=== PATIENT | female | born 1975 | race Two or more races ===

== ENCOUNTER 2017-07-20 07:47 | Emergency (ER) | payer BC ==
[2017-07-20] MEDS ORDERED: Sodium Chloride 0.9% 1,000 ML IV ONE ×2 (07:59→08:54)
[2017-07-20] MEDS ORDERED: Sodium Chloride 0.9% 2.5 ML Syringe FLUSH PRN (07:59)
[2017-07-20] MEDS ORDERED: Ondansetron 4 MG/2 ML SDV IVPUSH ONE ×2 (07:59→09:44)
[2017-07-20] MEDS ORDERED: Sodium Chloride 0.9% 10 ML Syringe FLUSH PRN (07:59)
[2017-07-20] MEDS ORDERED: Meclizine 25 MG Tab PO ONE (08:11)
--- NOTE | 2017-07-20 08:17 | EDM.PDOC ---
ED HPI GENERAL MEDICAL PROBLEM - General Chief Complaint: Neurological Problem Time Seen by Provider: 07/20/17 07:51 Source of Information: Reports: Patient History Limitations: Reports: No Limitations - History of Present Illness INITIAL COMMENTS - FREE TEXT/NARRATIVE: History of present illness: []Patient started having severe dizziness 30 minutes prior to arrival with nausea. She denies any recent illnesses, fevers, chills, trauma, visual changes , numbness or tingling or pain. Review of systems: As per history of present illness and below otherwise all systems reviewed and negative. Past medical history: As per history of present illness and as reviewed below otherwise noncontributory. Surgical history: As per history of present illness and as reviewed below otherwise noncontributory. Social history: No reported history of drug or alcohol abuse. Family history: As per history of present illness and as reviewed below otherwise noncontributory. Physical exam: General: Well developed, well nourished in NAD HEENT: Atraumatic, normocephalic, pupils reactive, negative for conjunctival pallor or scleral icterus, mucous membranes moist, throat clear, neck supple, nontender, trachea midline. Lungs: Clear to auscultation, breath sounds equal bilaterally, chest nontender. Heart: S1S2, regular, negative for clicks, rubs, or JVD. Abdomen: Soft, nondistended, nontender. Negative for masses or hepatosplenomegaly. Negative for costovertebral tenderness. Pelvis: Stable nontender. Genitourinary: Deferred. Rectal: Deferred. Extremities: Atraumatic, negative for cords or calf pain. Neurovascular unremarkable. Neuro: Awake, alert, oriented. Cranial nerves II through XII unremarkable. Cerebellum unremarkable. Motor and sensory unremarkable throughout. Exam nonfocal. Diagnostics: []Labs and test negative Therapeutics: []IV fluids Zofran, Valium and meclizine given Impression: []Benign positional vertigo Plan: []Zofran and meclizine as directed follow-up with PMD return if symptoms worsen or change Definitive disposition and diagnosis as appropriate pending reevaluation and review of above. - Related Data Allergies Allergy/AdvReac Type Severity Reaction Status Date / Time No Known Allergies Allergy Verified 07/20/17 07:54 Home Meds: Home Meds Ondansetron HCl [Zofran] 4 mg PO Q6HR PRN #16 tablet 07/20/17 [Rx] Past Medical History - Infectious Disease History Infectious Disease History: Reports: Chicken Pox - Past Surgical History HEENT Surgical History: Reports: Other (See Below) Other HEENT Surgeries/Procedures: nasal polyps removal Social & Family History - Family History Family Medical History: Noncontributory - Tobacco Use Smoking Status *Q: Never Smoker - Caffeine Use Caffeine Use: Reports: None - Recreational Drug Use Recreational Drug Use: No ED ROS GENERAL - Review of Systems Review Of Systems: See Below (See history of present illness) ED EXAM, NEURO - Physical Exam Exam: See Below (See history of present illness) Course - Vital Signs Last Recorded V/S: Last Vital Signs Temp 97.8 F 07/20/17 07:52 Pulse 68 07/20/17 07:52 Resp 18 07/20/17 07:52 BP 116/77 07/20/17 07:52 Pulse Ox 100 07/20/17 07:52 - Orders/Labs/Meds Orders: Active Orders 24 hr Category Date Time Status Sodium Chloride 0.9% [Saline Flush] Med 07/20/17 07:59 Active 10 ml FLUSH ASDIRECTED PRN Sodium Chloride 0.9% [Saline Flush] Med 07/20/17 07:59 Active 2.5 ml FLUSH ASDIRECTED PRN Saline Lock Insert [OM.PC] Stat Oth 07/20/17 07:59 Ordered Medication Orders Sodium Chloride (Saline Flush) 10 ml FLUSH ASDIRECTED PRN PRN Reason: Keep Vein Open Sodium Chloride (Saline Flush) 2.5 ml FLUSH ASDIRECTED PRN PRN Reason: Keep Vein Open Labs: Laboratory Tests 07/20/17 07/20/17 07/20/17 Range/Units 07:55 07:55 07:55 WBC 11.28 H (4.0-11.0) K/uL RBC 4.37 (4.30-5.90) M/uL Hgb 13.2 (12.0-16.0) g/dL Hct 39.7 (36.0-46.0) % MCV 90.8 (80.0-98.0) fL MCH 30.2 (27.0-32.0) pg MCHC 33.2 (31.0-37.0) g/dL RDW Std Deviation 42.3 (28.0-62.0) fl RDW Coeff of Jose 13 (11.0-15.0) % Plt Count 205 (150-400) K/uL MPV 11.00 (7.40-12.00) fL Add Manual Diff YES Neutrophils % (Manual) 44 L (48.0-80.0) % Band Neutrophils % 1 % Lymphocytes % (Manual) 32 (16.0-40.0) % Monocytes % (Manual) 11 (0.0-15.0) % Eosinophils % (Manual) 11 H (0.0-7.0) % Basophils % (Manual) 1 (0.0-1.5) % Nucleated RBC % 0.0 /100WBC Absolute Seg Neuts 5.0 (1.4-5.7) Band Neutrophils # 0.1 Lymphocytes # (Manual) 3.6 H (0.6-2.4) Monocytes # (Manual) 1.2 H (0.0-0.8) Eosinophils # (Manual) 1.2 H (0.0-0.7) Basophils # (Manual) 0.1 (0.0-0.1) Nucleated RBCs # 0 K/uL Sodium 137 (136-146) mmol/L Potassium 3.7 (3.5-5.1) mmol/L Chloride 108 (98-110) mmol/L Carbon Dioxide 20 L (21-31) mmol/L BUN 24 H (6.0-23.0) mg/dL Creatinine 0.8 (0.6-1.5) mg/dL Est Cr Clr Drug Dosing 79.91 mL/min Estimated GFR (MDRD) > 60.0 ml/min Glucose 131 H (60-110) mg/dL Calcium 9.5 (8.8-10.8) mg/dL Total Bilirubin 0.5 (0.1-1.5) mg/dL AST 19 (5-40) IU/L ALT 11 (8-54) IU/L Alkaline Phosphatase 49 (40-150) Total Protein 7.6 (6.0-8.0) g/dL Albumin 4.3 (3.5-5.0) g/dL Globulin 3.3 (2.0-3.5) g/dL Albumin/Globulin Ratio 1.3 (1.3-2.8) HCG, Qual NEGATIVE (NEG) Meds: Medications Generic Name Dose Route Start Last Admin Trade Name Emilie PRN Reason Stop Dose Admin Sodium Chloride 10 ml 07/20/17 07:59 Saline Flush FLUSH ASDIRECTED PRN Keep Vein Open Sodium Chloride 2.5 ml 07/20/17 07:59 Saline Flush FLUSH ASDIRECTED PRN Keep Vein Open Discontinued Medications Generic Name Dose Route Start Last Admin Trade Name Emilie PRN Reason Stop Dose Admin Diazepam 2.5 mg 07/20/17 08:53 07/20/17 09:00 Valium IVPUSH 07/20/17 08:54 2.5 mg ONETIME ONE Administration Sodium Chloride 1,000 mls @ 999 mls/hr 07/20/17 07:59 07/20/17 08:08 Normal Saline IV 07/20/17 08:59 999 mls/hr .Bolus ONE Administration Sodium Chloride 1,000 mls @ 999 mls/hr 07/20/17 08:54 07/20/17 09:02 Normal Saline IV 07/20/17 09:54 999 mls/hr .Bolus ONE Administration Meclizine HCl 25 mg 07/20/17 08:11 07/20/17 08:32 Antivert PO 07/20/17 08:12 25 mg ONETIME ONE Administration Metoclopramide HCl 10 mg 07/20/17 08:53 Reglan IV 07/20/17 08:54 ONETIME ONE Ondansetron HCl 4 mg 07/20/17 07:59 07/20/17 08:06 Zofran IVPUSH 07/20/17 08:00 4 mg ONETIME ONE Administration Ondansetron HCl 4 mg 07/20/17 09:44 07/20/17 09:49 Zofran IVPUSH 07/20/17 09:45 4 mg ONETIME ONE Administration Departure - Departure Time of Disposition: 10:53 Disposition: Home, Self-Care 01 Condition: Good Clinical Impression: Benign positional vertigo Qualifiers: Laterality: unspecified laterality Qualified Code(s): H81.10 - Benign paroxysmal vertigo, unspecified ear - Discharge Information Prescriptions: Ondansetron HCl [Zofran] 4 mg PO Q6HR PRN #16 tablet PRN Reason: Nausea Instructions: Benign Positional Vertigo Referrals: PCP,None [Primary Care Provider] - Forms: ED Department Discharge Additional Instructions: The following information is given to patients seen in the emergency department who are being discharged to home. This information is to outline your options for follow-up care. We provide all patients seen in our emergency department with a follow-up referral. The need for follow-up, as well as the timing and circumstances, are variable depending upon the specifics of your emergency department visit. If you don't have a primary care physician on staff, we will provide you with a referral. We always advise you to contact your personal physician following an emergency department visit to inform them of the circumstance of the visit and for follow-up with them and/or the need for any referrals to a consulting specialist. The emergency department will also refer you to a specialist when appropriate. This referral assures that you have the opportunity for follow-up care with a specialist. All of these measure are taken in an effort to provide you with optimal care, which includes your follow-up. Under all circumstances we always encourage you to contact your private physician who remains a resource for coordinating your care. When calling for follow-up care, please make the office aware that this follow-up is from your recent emergency room visit. If for any reason you are refused follow-up, please contact the [facility] at and asked to speak to the emergency department charge nurse. Take [id number] meclizine 25 mg chewable tablets every 8 hours as needed for dizziness. Zofran for nausea follow-up with PMD [facility] [address] [place] [id number] - My Orders Last 24 Hours: My Active Orders 07/20/17 07:59 Sodium Chloride 0.9% [Saline Flush] 10 ml FLUSH ASDIRECTED PRN Sodium Chloride 0.9% [Saline Flush] 2.5 ml FLUSH ASDIRECTED PRN Saline Lock Insert [OM.PC] Stat - Assessment/Plan Last 24 Hours: My Active Orders 07/20/17 07:59 Sodium Chloride 0.9% [Saline Flush] 10 ml FLUSH ASDIRECTED PRN Sodium Chloride 0.9% [Saline Flush] 2.5 ml FLUSH ASDIRECTED PRN Saline Lock Insert [OM.PC] Stat
[2017-07-20 08:27] LABS: CHLORIDE,CL 108 mmol/L (98-110); SODIUM,NA 137 mmol/L (136-146)
[2017-07-20] MEDS ORDERED: Metoclopramide 10 MG/2 ML SDV IV ONE (08:53)
== END 2017-07-20 10:54 | disposition home or self-care (01) ==
LOC: MW.ED 07:47
DX: H81.10 Benign paroxysmal vertigo, unspecified ear (principal)
CPT/HCPCS: 36415; 80053; 84703; 85025; 96361; 96374; 96375; 96376; 99283; A9270; J2405; J3360; J7040

== ENCOUNTER 2017-12-02 00:28 | Emergency (ER) | payer BC ==
[2017-12-02] MEDS ORDERED: EPINEPHrine 1 MG/ML SDV IM ONE (00:50)
[2017-12-02] MEDS ORDERED: methylPREDNISolone Sodium Succinate 125 MG/2 ML SDV IM ONE (00:50)
--- NOTE | 2017-12-02 00:52 | EDM.PDOC ---
ED HPI GENERAL MEDICAL PROBLEM - General Chief Complaint: Skin Complaint Stated Complaint: RASH Time Seen by Provider: 12/02/17 00:46 - History of Present Illness INITIAL COMMENTS - FREE TEXT/NARRATIVE: HISTORY AND PHYSICAL: History of present illness: Patient's 42-year-old female presents with a concern of allergic reaction patient has had rash with itching and some mild facial swelling is an over last 4-5 days she thinks this may be related to either a new shampoo or conditioner she has been using Benadryl with no significant improvement status slightly worse tonight is been no trouble breathing no tongue swelling no dysphagia or dysphonia. Review of systems: As per history of present illness and below otherwise all systems reviewed and negative. Past medical history: As per history of present illness and as reviewed below otherwise noncontributory. Surgical history: As per history of present illness and as reviewed below otherwise noncontributory. Social history: No reported history of drug or alcohol abuse. Family history: As per history of present illness and as reviewed below otherwise noncontributory. Physical exam: HEENT: Atraumatic, normocephalic, pupils reactive, negative for conjunctival pallor or scleral icterus, mucous membranes moist, throat clear, neck supple, nontender, trachea midline. Lungs: Clear to auscultation, breath sounds equal bilaterally, chest nontender. Heart: S1S2, regular, negative for clicks, rubs, or JVD. Abdomen: Soft, nondistended, nontender. Negative for masses or hepatosplenomegaly. Negative for costovertebral tenderness. Pelvis: Stable nontender. Genitourinary: Deferred. Rectal: Deferred. Extremities: Atraumatic, negative for cords or calf pain. Neurovascular unremarkable. Neuro: Awake, alert, oriented. Cranial nerves II through XII unremarkable. Cerebellum unremarkable. Motor and sensory unremarkable throughout. Exam nonfocal. Skin: Patient is noted have a urticarial type rash involving her face head neck extremities and thorax to lesser degree. Diagnostics: None Therapeutics: Epi 0.3 IM Solu-Medrol 125 mg IM Impression: #1 allergic dermatitis Definitive disposition and diagnosis as appropriate pending reevaluation and review of above. - Related Data Allergies Allergy/AdvReac Type Severity Reaction Status Date / Time No Known Allergies Allergy Verified 07/20/17 07:54 Home Meds: Home Meds Ondansetron HCl [Zofran] 4 mg PO Q6HR PRN #16 tablet 07/20/17 [Rx] Past Medical History - Infectious Disease History Infectious Disease History: Reports: Chicken Pox - Past Surgical History HEENT Surgical History: Reports: Other (See Below) Other HEENT Surgeries/Procedures: nasal polyps removal Social & Family History - Family History Family Medical History: Noncontributory - Tobacco Use Smoking Status *Q: Never Smoker - Caffeine Use Caffeine Use: Reports: None - Recreational Drug Use Recreational Drug Use: No ED ROS GENERAL - Review of Systems Review Of Systems: ROS reveals no pertinent complaints other than HPI. ED EXAM, SKIN/RASH Exam: See Below (See dictation) Departure - Departure Time of Disposition: 00:51 Disposition: Home, Self-Care 01 Condition: Good Clinical Impression: Allergic reaction - Discharge Information Referrals: Scott Jenkins MD [Primary Care Provider] - Additional Instructions: The following information is given to patients seen in the emergency department who are being discharged to home. This information is to outline your options for follow-up care. We provide all patients seen in our emergency department with a follow-up referral. The need for follow-up, as well as the timing and circumstances, are variable depending upon the specifics of your emergency department visit. If you don't have a primary care physician on staff, we will provide you with a referral. We always advise you to contact your personal physician following an emergency department visit to inform them of the circumstance of the visit and for follow-up with them and/or the need for any referrals to a consulting specialist. The emergency department will also refer you to a specialist when appropriate. This referral assures that you have the opportunity for followup care with a specialist. All of these measure are taken in an effort to provide you with optimal care, which includes your followup. Under all circumstances we always encourage you to contact your private physician who remains a resource for coordinating your care. When calling for followup care, please make the office aware that this follow-up is from your recent emergency room visit. If for any reason you are refused follow-up, please contact the [facility] emergency department at and asked to speak to the emergency department charge nurse. Medrol as prescribed continue Benadryl and Claritin as directed avoid all possible allergens follow-up primary medical doctor call to schedule routine appointment and return as needed as discussed
== END 2017-12-02 01:57 | disposition home or self-care (01) ==
LOC: MW.ED 00:28
DX: L50.0 Allergic urticaria (principal)
CPT/HCPCS: 96372; 99283; J0171; J2930; 99282

== ENCOUNTER 2020-09-05 14:08 | Observation (INO) | payer OTHER ==
[2020-09-05] MEDS ORDERED: HYDROmorphone 2 MG/ML Syringe IVPUSH ONE ×2 (14:15→14:46)
[2020-09-05] MEDS ORDERED: Ondansetron 4 MG/2 ML SDV IVPUSH ONE ×2 (14:15→15:52)
--- NOTE | 2020-09-05 14:21 | PCM.SN.2 ---
- Free Text/Narrative Note: Heart rate = 49 bpm, junctional rhythm, normal QRS interval, diffuse benign early repolarization, no STEMI. EKG and rhythm strip interpreted by me at 1414
[2020-09-05] MEDS ORDERED: Sodium Chloride 0.9% 1,000 ML IV ONE (14:27)
--- NOTE | 2020-09-05 14:28 | EDM.PDOC ---
ED HPI GENERAL MEDICAL PROBLEM - General Chief Complaint: Lower Extremity Injury/Pain Stated Complaint: EMS Time Seen by Provider: 09/05/20 14:15 Source of Information: Reports: Patient, EMS History Limitations: Reports: No Limitations - History of Present Illness INITIAL COMMENTS - FREE TEXT/NARRATIVE: HISTORY AND PHYSICAL: History of present illness: Patient is a 45-year-old female who presents emergency room today via EMS with concern of right lower leg injury that occurred just prior to travel to the ED. Patient states that she was on her child's hover board when she was trying to step off the hover board. Patient states to have the board slipped out from under her and she fell twisting her right lower extremity. Patient states that she noticed obvious deformity of the lower extremity so called EMS. In route to the facility, EMS did give patient 75 mg of fentanyl for pain. States that she did not hit her head or lose consciousness and has no other symptoms or complaints at this time. Patient states that she is sexually active and not on control so there is a chance that she could be . Patient denies fever, chills, chest pain, shortness of breath, or cough. Denies headache, neck stiff ness, change in vision, syncope, or near syncope. Denies nausea, vomiting, abdominal pain, diarrhea, constipation, or dysuria. Has not noted any blood in urine or stool. Patient has been eating and drinking appropriately. Review of systems: As per history of present illness and below otherwise all systems reviewed and negative. Past medical history: As per history of present illness and as reviewed below otherwise noncontributory. Surgical history: As per history of present illness and as reviewed below otherwise noncontributory. Social history: See social history for further information Family history: As per history of present illness and as reviewed below otherwise noncontributory. Physical exam: General: Patient is alert, oriented, and in no acute distress. Patient sitting on exam table, appears quite uncomfortable. Bradycardic 55-60bmp ranging on exam. Otherwise vitally stable. HEENT: Atraumatic, normocephalic, pupils equal and reactive bilaterally, negative for conjunctival pallor or scleral icterus, mucous membranes moist, TMs normal bilaterally, throat clear, neck supple, nontender, trachea midline. No drooling or trismus noted. No meningeal signs. No hot potato voice noted. Lungs: Clear to auscultation, breath sounds equal bilaterally, chest nontender. Heart: S1S2, regular rate and rhythm without overt murmur Abdomen: Soft, nondistended, nontender. Negative for masses or hepatosplenomegaly. Negative for costovertebral tenderness. Pelvis: Stable nontender. Genitourinary: Deferred. Rectal: Deferred. Skin: Intact, warm, dry. No lesions or rashes noted. Extremities: There is an obvious closed fracture deformity of the RLE. DP/PT pulses intact of the RLE via doppler. Intact sensation to light/deep touch of entire RLE. Unable to assess ROM of the RLE due to obvious fracture deformity. The foot in relation to the knee on the right at the area of obvious fracture is rotated outward. The area of obvious fracture does show skin tenting but no open area noted/no blood noted. Otherwise, atraumatic, negative for cords or calf pain. Neurovascular unremarkable. Neuro: Awake, alert, oriented. Cranial nerves II through XII unremarkable. Cerebellum unremarkable. Motor and sensory unremarkable throughout. Exam nonfocal. Notes: Dr. Hammer directly involved in patient care. Upon initial exam, patient is quite uncomfortable and RLE has obvious fracture deformity with skin tenting/ unstable fracture with the lower part of the extremity rotated outward / not in-line with the upper portion of the extremity. Neurovascularly intact. Long posterior splint with a sugar tong splint was applied by myself and nursing staff to ensure stability of the fracture. Currently at this time, patient is neurovascularly intact confirmed via doppler. Toes are pink, warm, and cap refill < 2 seconds after splint placement. Following therapeutics, she expresses that she still has significant pain, however, she would like to decline more narcotic pain medication at this time as she states it makes her nauseous and unwell. 17:30: I did call and speak to the orthopedic provider on-call, Dr. Jose Yates, and thoroughly discussed patient's case. He recommends that patient be placed in a long posterior/sugar tong splint and discharged to home/ with pain medications and crutches and to have patient follow-up this week in the clinic and get scheduled for surgery later date with Dr. Case, who assumes call/takes over for Dr. Yates starting tomorrow morning. 17:45: Patient made aware of Dr. Yates's recommendations and is concerned about discharge as she feels unable to get around due to pain requesting to discuss further with her . 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 Yates admission for pain control. 19:00: At this time, Dr. Hammer is off shift and Dr. Treviño is now directly involved in patient care. 19:05: I did call and speak to Dr. Yates who would like the hospitalist to admit patient for pain control. 19:15: I did call and speak to Dr. Chilel, hospitalist credit control officer, and thoroughly discussed patients case. Will admit to observation telemetry. Diagnostics: EKG, CBC, CMP, UA, CXR, Trop, Tib/Fib xr extended for joint above and below, serum hcg Therapeutics: NS, Zofran, Dilaudid, Toradol, long posterior/sugar tong splint Impression: Tibia/fibula shaft fracture, closed, displaced Plan: Admit to observation to Dr. Chilel on telemetry with consult to Dr. Yates Definitive disposition and diagnosis as appropriate pending reevaluation and review of above. right leg Pain Score (Numeric/FACES): 10 - Related Data Allergies Allergy/AdvReac Type Severity Reaction Status Date / Time benzoyl peroxide Allergy Rash Verified 09/05/20 22:29 Home Meds: Home Meds . [No Known Home Meds] 09/05/20 [History] Past Medical History HEENT History: Reports: Sinusitis Cardiovascular History: Reports: Hypertension - Infectious Disease History Infectious Disease History: Reports: Chicken Pox - Past Surgical History HEENT Surgical History: Reports: Other (See Below) Other HEENT Surgeries/Procedures: nasal polyps removal Social & Family History - Family History Family Medical History: No Pertinent Family History - Caffeine Use Caffeine Use: Reports: None ED ROS GENERAL - Review of Systems Review Of Systems: Comprehensive ROS is negative, except as noted in HPI. ED EXAM, GENERAL - Physical Exam Exam: See Below (see dictation) ED GENERAL MEDICAL PROCEDURES - Splinting Right Lower Extremity Splint Site: Right lower extremity Pre-procedure NV status: Normal Post-procedure NV status: Normal Splint Type: Custom Splint Material: Plaster Splint Design: Sugar Tong, Posterior Applied & Form Fitted By: Provider, Nurse Provider Post-Splint Application NV Check: NV Status Normal, Good Position Complications: No Course - Vital Signs Last Recorded V/S: Last Vital Signs Temp 96.6 F L 09/06/20 12:00 Pulse 63 09/06/20 12:00 Resp 18 09/06/20 12:00 BP 126/76 09/06/20 12:00 Pulse Ox 100 09/06/20 12:00 - Orders/Labs/Meds Orders: Medication Orders Acetaminophen (Tylenol) 650 mg PO Q4H PRN PRN Reason: Pain Albuterol/Ipratropium (Duoneb 3.0-0.5 Mg/3 Ml) 3 ml NEB Q4HRRT PRN PRN Reason: Shortness Of Breath/wheezing Enoxaparin Sodium (Lovenox) 40 mg SUBCUT Q24H FORMERLY [facility], 1928–1983 Last Admin: 09/06/20 09:56 Dose: 40 mg Documented by: BREANNA Lactated Ringer's (Ringers, Lactated) 1,000 mls @ 125 mls/hr IV ASDIRECTED FORMERLY [facility], 1928–1983 Last Admin: 09/06/20 13:41 Dose: 125 mls/hr Documented by: Infusion: 09/06/20 13:01 Dose: 125 mls/hr Documented by: Admin: 09/06/20 05:01 Dose: 125 mls/hr Documented by: Infusion: 09/06/20 04:51 Dose: 125 mls/hr Documented by: Admin: 09/05/20 20:51 Dose: 125 mls/hr Documented by: NATALIO Ceftriaxone Sodium/Dextrose 1 (gm/ Premix) 50 mls @ 100 mls/hr IV Q24H FOR[facility], [facility]1983 Last Admin: 09/06/20 08:37 Dose: 100 mls/hr Documented by: BREANNA Morphine Sulfate (Morphine) 3 mg IVPUSH Q3H PRN PRN Reason: Pain Last Admin: 09/06/20 08:45 Dose: 3 mg Documented by: BREANNA Ondansetron HCl (Zofran) 4 mg IVPUSH Q4H PRN PRN Reason: Nausea/Vomiting Last Admin: 09/06/20 09:56 Dose: 4 mg Documented by: Admin: 09/06/20 05:36 Dose: 4 mg Documented by: Admin: 09/05/20 21:11 Dose: 4 mg Documented by: NATALIO Oxycodone HCl (Oxycodone) 5 mg PO Q4H PRN PRN Reason: Pain Last Admin: 09/06/20 14:14 Dose: 5 mg Documented by: KATERINAIMACarrie Admin: 09/06/20 09:56 Dose: 5 mg Documented by: ALBIMAR Scopolamine (Transderm-Scop) 1.5 mg TRDERM Q72H PRN PRN Reason: Vomiting Last Admin: 09/06/20 08:36 Dose: 1.5 mg Documented by: KATERINAIMACarrie Labs: Laboratory Tests 09/05/20 09/05/20 09/05/20 Range/Units 15:40 15:40 15:40 WBC 19.35 H (4.0-11.0) K/uL RBC 4.52 (4.30-5.90) M/uL Hgb 13.5 (12.0-16.0) g/dL Hct 42.3 (36.0-46.0) % MCV 93.6 (80.0-98.0) fL MCH 29.9 (27.0-32.0) pg MCHC 31.9 (31.0-37.0) g/dL RDW Std Deviation 45.0 (28.0-62.0) fl RDW Coeff of Jose 13 (11.0-15.0) % Plt Count 179 (150-400) K/uL MPV 10.80 (7.40-12.00) fL Neut % (Auto) 85.9 H (48.0-80.0) % Lymph % (Auto) 8.1 L (16.0-40.0) % Union % (Auto) 5.2 (0.0-15.0) % Eos % (Auto) 0.5 (0.0-7.0) % Baso % (Auto) 0.3 (0.0-1.5) % Neut # (Auto) 16.6 H (1.4-5.7) K/uL Lymph # (Auto) 1.6 (0.6-2.4) K/uL Union # (Auto) 1.0 H (0.0-0.8) K/uL Eos # (Auto) 0.1 (0.0-0.7) K/uL Baso # (Auto) 0.1 (0.0-0.1) K/uL Nucleated RBC % 0.0 /100WBC Nucleated RBCs # 0 K/uL Sodium 143 (136-145) mmol/L Potassium 3.6 (3.5-5.1) mmol/L Chloride 108 H (98-107) mmol/L Carbon Dioxide 21.3 (21.0-32.0) mmol/L BUN 16 (7.0-18.0) mg/dL Creatinine 1.0 (0.6-1.0) mg/dL Est Cr Clr Drug Dosing 61.99 mL/min Estimated GFR (MDRD) > 60.0 ml/min Glucose 114 H (74-106) mg/dL Calcium 8.9 (8.5-10.1) mg/dL Total Bilirubin 0.2 (0.2-1.0) mg/dL AST 18 (15-37) IU/L ALT 22 (14-63) IU/L Alkaline Phosphatase 52 (46-116) U/L Troponin I < 0.050 (0.000-0.056) ng/mL Total Protein 7.3 (6.4-8.2) g/dL Albumin 3.9 (3.4-5.0) g/dL Globulin 3.4 (2.6-4.0) g/dL Albumin/Globulin Ratio 1.1 (0.9-1.6) HCG, Qual NEGATIVE (NEG) Influenza Type A RNA (NEGATIVE) Influenza Type B RNA (NEGATIVE) SARS-CoV-2 RNA (MAGY) (NEGATIVE) 09/05/20 Range/Units 16:15 WBC (4.0-11.0) K/uL RBC (4.30-5.90) M/uL Hgb (12.0-16.0) g/dL Hct (36.0-46.0) % MCV (80.0-98.0) fL MCH (27.0-32.0) pg MCHC (31.0-37.0) g/dL RDW Std Deviation (28.0-62.0) fl RDW Coeff of Jose (11.0-15.0) % Plt Count (150-400) K/uL MPV (7.40-12.00) fL Neut % (Auto) (48.0-80.0) % Lymph % (Auto) (16.0-40.0) % Union % (Auto) (0.0-15.0) % Eos % (Auto) (0.0-7.0) % Baso % (Auto) (0.0-1.5) % Neut # (Auto) (1.4-5.7) K/uL Lymph # (Auto) (0.6-2.4) K/uL Union # (Auto) (0.0-0.8) K/uL Eos # (Auto) (0.0-0.7) K/uL Baso # (Auto) (0.0-0.1) K/uL Nucleated RBC % /100WBC Nucleated RBCs # K/uL Sodium (136-145) mmol/L Potassium (3.5-5.1) mmol/L Chloride (98-107) mmol/L Carbon Dioxide (21.0-32.0) mmol/L BUN (7.0-18.0) mg/dL Creatinine (0.6-1.0) mg/dL Est Cr Clr Drug Dosing mL/min Estimated GFR (MDRD) ml/min Glucose (74-106) mg/dL Calcium (8.5-10.1) mg/dL Total Bilirubin (0.2-1.0) mg/dL AST (15-37) IU/L ALT (14-63) IU/L Alkaline Phosphatase (46-116) U/L Troponin I (0.000-0.056) ng/mL Total Protein (6.4-8.2) g/dL Albumin (3.4-5.0) g/dL Globulin (2.6-4.0) g/dL Albumin/Globulin Ratio (0.9-1.6) HCG, Qual (NEG) Influenza Type A RNA NEGATIVE (NEGATIVE) Influenza Type B RNA NEGATIVE (NEGATIVE) SARS-CoV-2 RNA (MAGY) NEGATIVE (NEGATIVE) Meds: Medications Generic Name Dose Route Start Last Admin Trade Name Freq PRN Reason Stop Dose Admin Acetaminophen 650 mg 09/06/20 08:36 Tylenol PO Q4H PRN Pain Albuterol/Ipratropium 3 ml 09/05/20 19:45 Duoneb 3.0-0.5 Mg/3 Ml NEB Q4HRRT PRN Shortness Of Breath/wheezing Enoxaparin Sodium 40 mg 09/06/20 09:15 09/06/20 09:56 Lovenox SUBCUT 40 mg Q24H MICHEL Administration Lactated Ringer's 1,000 mls @ 125 mls/hr 09/05/20 19:45 09/06/20 13:41 Ringers, Lactated IV 125 mls/hr ASDIRECTED MICHEL Administration Ceftriaxone Sodium/Dextrose 1 50 mls @ 100 mls/hr 09/06/20 08:00 09/06/20 08:37 gm/ Premix IV 100 mls/hr Q24H MICHEL Administration Morphine Sulfate 3 mg 09/06/20 08:33 09/06/20 08:45 Morphine IVPUSH 3 mg Q3H PRN Administration Pain Ondansetron HCl 4 mg 09/05/20 19:45 09/06/20 09:56 Zofran IVPUSH 4 mg Q4H PRN Administration Nausea/Vomiting Oxycodone HCl 5 mg 09/06/20 08:36 09/06/20 14:14 Oxycodone PO 5 mg Q4H PRN Administration Pain Scopolamine 1.5 mg 09/06/20 08:00 09/06/20 08:36 Transderm-Scop TRDERM 1.5 mg Q72H PRN Administration Vomiting Discontinued Medications Generic Name Dose Route Start Last Admin Trade Name Freq PRN Reason Stop Dose Admin Enoxaparin Sodium 40 mg 09/06/20 10:00 Lovenox SUBCUT Q24H MICHEL Hydromorphone HCl 0.5 mg 09/05/20 14:15 09/05/20 14:27 Dilaudid IVPUSH 09/05/20 14:16 0.5 mg ONETIME ONE Administration Hydromorphone HCl 0.5 mg 09/05/20 14:46 09/05/20 14:56 Dilaudid IVPUSH 09/05/20 14:47 0.5 mg ONETIME ONE Administration Hydromorphone HCl 0.5 mg 09/05/20 19:45 09/06/20 05:38 Dilaudid IVPUSH 0.5 mg Q2H PRN Administration Pain (severe 7-10) Hydromorphone HCl 0.5 mg 09/06/20 07:30 Dilaudid IVPUSH Q2H PRN Pain (severe 7-10) Sodium Chloride 1,000 mls @ 999 mls/hr 09/05/20 14:27 09/05/20 14:56 Normal Saline IV 09/05/20 15:27 999 mls/hr STAT ONE Administration Ketorolac Tromethamine 30 mg 09/05/20 19:02 09/05/20 19:25 Toradol IVPUSH 09/05/20 19:03 30 mg ONETIME ONE Administration Ondansetron HCl 4 mg 09/05/20 14:15 09/05/20 14:27 Zofran IVPUSH 09/05/20 14:16 4 mg ONETIME ONE Administration Ondansetron HCl 4 mg 09/05/20 15:52 09/05/20 16:20 Zofran IVPUSH 09/05/20 15:53 4 mg ONETIME ONE Administration Departure - Departure Time of Disposition: 19:44 Disposition: Refer to Observation Clinical Impression: Tibia/fibula fracture, shaft Qualifiers: Encounter type: initial encounter Fracture type: closed Laterality: right Qualified Code(s): S82.201A - Unspecified fracture of shaft of right tibia, initial encounter for closed fracture - Discharge Information
--- NOTE | 2020-09-05 16:10 | CR ---
INDICATION: Fall. COMPARISON: None. TECHNIQUE: Right tibia fibula 2 views. FINDINGS: Acute comminuted displaced predominantly oblique fracture of the distal tibia diaphysis with approximately 1.6 cm of lateral displacement of the distal fracture fragment. Oblique displaced fracture of distal fibula diaphysis with 0.6 cm of lateral displacement of the distal fracture fragment. IMPRESSION: Displaced distal tibia and fibula fractures as above. Dictated by Young Mccarty MD @ Sep 05 2020 4:07PM Signed by Dr. Young Mccarty @ Sep 05 2020 4:10PM
[2020-09-05 16:22] LABS: BLOOD UREA NITROGEN,BUN 16 mg/dL (7.0-18.0); CARBON DIOXIDE,CO2 21.3 mmol/L (21.0-32.0); CHLORIDE,CL 108 mmol/L (98-107); GLUCOSE RANDOM 114 mg/dL (74-106); POTASSIUM,K 3.6 mmol/L (3.5-5.1); SODIUM,NA 143 mmol/L (136-145)
[2020-09-05 17:00] LABS: CORONAVIRUS COVID-19 NAA NEGATIVE (NEGATIVE); INFLUENZA A NAA NEGATIVE (NEGATIVE); INFLUENZA B NAA NEGATIVE (NEGATIVE)
--- NOTE | 2020-09-05 17:04 | CR ---
INDICATION: Bradycardia. TECHNIQUE: Chest 1 view Comparison: 03/16/2015. Findings: Cardiomediastinal silhouette is unremarkable. No focal lung consolidation, pleural effusion or pneumothorax. Bones are unremarkable. Impression: No acute cardiopulmonary abnormality. Dictated by Young Mccarty MD @ Sep 05 2020 5:00PM Signed by Dr. Young Mccarty @ Sep 05 2020 5:02PM
--- NOTE | 2020-09-05 17:45 | CR ---
Indication: Postreduction Technique: Two views right tibia and fibula Comparison: Earlier today Findings: Improved alignment the distal tibial and distal fibular diaphyseal fractures status post splint placement. Impression: Improved alignment of the distal tibial and fibular fractures after splint placement. Dictated by Young Cruz MD @ Sep 05 2020 5:41PM Signed by Dr. Young Cruz @ Sep 05 2020 5:43PM
[2020-09-05] MEDS ORDERED: Ketorolac 30 MG/ML SDV IVPUSH ONE (19:02)
[2020-09-05] MEDS ORDERED: Albuterol/Ipratropium 3.0-0.5 MG/3 ML Neb Soln NEB PRN (19:45)
[2020-09-05] MEDS: Lactated Ringers 1,000 ML IV SCH (20:51)
[2020-09-05] MEDS: HYDROmorphone 2 MG/ML Syringe IVPUSH PRN ×2 (21:10→23:48)
[2020-09-05] MEDS: Ondansetron 4 MG/2 ML SDV IVPUSH PRN (21:11)
--- NOTE | 2020-09-05 22:37 | PCM.HP.2 ---
H&P History of Present Illness - General Date of Service: 09/05/20 Admit Problem/Dx: Admission Diagnosis/Problem Admission Diagnosis/Problem Pain - History of Present Illness Initial Comments - Free Text/Narative: Patient is a 45-year-old female with PMH of Stage 1 HTN, Migraine, who presents emergency room today via EMS with concern of right lower leg injury. Patient states that she was on her child's hover board when she was trying to step off the hover board, she fell twisting her right lower extremity. Patient noticed obvious deformity of the lower extremity after her fall and called EMS. Patient received 75 mg of fentanyl for pain on route to the ER. Patient denied hitting her head or lose consciousness and has no other symptoms or complaints at this time. Patient denies fever, chills, chest pain, shortness of breath, or cough. Denies headache, neck stiff ness, change in vision, syncope, or near syncope. Denies nausea, vomiting, abdominal pain, diarrhea, constipation, or dysuria. Has not no jaswant any blood in urine or stool. Patient has been eating and drinking appropriately. X-ray showed Acute comminuted displaced fracture of distal right tibia and fibula. Long posterir spilnt and sugar tong splint was applied to tabilze the fracture. Orthopedic surgeon presentation designer recommended no immediate surgery, patient had a lot of pain and nausea , patient was admitted for further management. Er had called Orthopedic surgeon at [facility] as well, they had recommended transfer for possible surgery tomorrow but patient refused the transfer, preferred to stay here and be seen by ortho in AM. right leg Pain Score (Numeric/FACES): 10 - Related Data Allergies/Adverse Reactions: Allergies Allergy/AdvReac Type Severity Reaction Status Date / Time benzoyl peroxide Allergy Rash Verified 09/05/20 22:29 Home Medications: Home Meds . [No Known Home Meds] 09/05/20 [History] Past Medical History - Past Health History Medical/Surgical History: Denies Medical/Surgical History HEENT History: Reports: Sinusitis Cardiovascular History: Reports: Hypertension - Infectious Disease History Infectious Disease History: Reports: Chicken Pox - Past Surgical History HEENT Surgical History: Reports: Other (See Below) Other HEENT Surgeries/Procedures: nasal polyps removal Social & Family History - Family History Family Medical History: No Pertinent Family History - Tobacco Use Tobacco Use Status *Q: Never Tobacco User - Caffeine Use Caffeine Use: Reports: None - Recreational Drug Use Recreational Drug Use: No Drug Use in Last 12 Months: No H&P Review of Systems - Review of Systems: Review Of Systems: See Below General: Denies: Fever Pulmonary: Denies: Shortness of Breath, Wheezing Cardiovascular: Denies: Chest Pain, Palpitations, Dyspnea on Exertion Gastrointestinal: Reports: Nausea. Denies: Abdominal Pain, Anorexia, Black Stool, Decreased Appetite, Difficulty Swallowing, Mucous in Stool Genitourinary: Denies: Dysuria, Frequency, Burning Musculoskeletal: Reports: Leg Pain, Foot Pain. Denies: Neck Pain, Shoulder Pain, Arm Pain, Back Pain Neurological: Denies: Confusion, Dizziness, Headache Exam - Exam Exam: See Below - Vital Signs Vital Signs: Last Vital Signs Temp 37.1 C 09/05/20 21:00 Pulse 78 09/05/20 21:00 Resp 18 09/05/20 21:00 BP 128/75 09/05/20 21:00 Pulse Ox 100 09/05/20 21:00 Weight: 65 kg - Exam Quality Assessment: No: Supplemental Oxygen General: Alert, Oriented, Cooperative, Mild Distress Neck: Supple, Trachea Midline Lungs: Clear to Auscultation, Normal Respiratory Effort Cardiovascular: Regular Rate, Regular Rhythm, Normal S1, Normal S2 Extremities: No Pedal Edema, Normal Capillary Refill, Joint Swelling, Leg Pain, Limited Range of Motion. No: Non-Tender Peripheral Pulses: 3+: Dorsalis Pedis (L), Dorsalis Pedis (R) - Patient Data Lab Results Last 24 hrs: Laboratory Results - last 24 hr 09/05/20 09/05/20 09/05/20 Range/Units 15:40 15:40 15:40 WBC 19.35 H (4.0-11.0) K/uL RBC 4.52 (4.30-5.90) M/uL Hgb 13.5 (12.0-16.0) g/dL Hct 42.3 (36.0-46.0) % MCV 93.6 (80.0-98.0) fL MCH 29.9 (27.0-32.0) pg MCHC 31.9 (31.0-37.0) g/dL RDW Std Deviation 45.0 (28.0-62.0) fl RDW Coeff of Jose 13 (11.0-15.0) % Plt Count 179 (150-400) K/uL MPV 10.80 (7.40-12.00) fL Neut % (Auto) 85.9 H (48.0-80.0) % Lymph % (Auto) 8.1 L (16.0-40.0) % [place] % (Auto) 5.2 (0.0-15.0) % Eos % (Auto) 0.5 (0.0-7.0) % Baso % (Auto) 0.3 (0.0-1.5) % Neut # (Auto) 16.6 H (1.4-5.7) K/uL Lymph # (Auto) 1.6 (0.6-2.4) K/uL [place] # (Auto) 1.0 H (0.0-0.8) K/uL Eos # (Auto) 0.1 (0.0-0.7) K/uL Baso # (Auto) 0.1 (0.0-0.1) K/uL Nucleated RBC % 0.0 /100WBC Nucleated RBCs # 0 K/uL Sodium 143 (136-145) mmol/L Potassium 3.6 (3.5-5.1) mmol/L Chloride 108 H (98-107) mmol/L Carbon Dioxide 21.3 (21.0-32.0) mmol/L BUN 16 (7.0-18.0) mg/dL Creatinine 1.0 (0.6-1.0) mg/dL Est Cr Clr Drug Dosing 61.99 mL/min Estimated GFR (MDRD) > 60.0 ml/min Glucose 114 H (74-106) mg/dL Calcium 8.9 (8.5-10.1) mg/dL Total Bilirubin 0.2 (0.2-1.0) mg/dL AST 18 (15-37) IU/L ALT 22 (14-63) IU/L Alkaline Phosphatase 52 (46-116) U/L Troponin I < 0.050 (0.000-0.056) ng/mL Total Protein 7.3 (6.4-8.2) g/dL Albumin 3.9 (3.4-5.0) g/dL Globulin 3.4 (2.6-4.0) g/dL Albumin/Globulin Ratio 1.1 (0.9-1.6) HCG, Qual NEGATIVE (NEG) Influenza Type A RNA (NEGATIVE) Influenza Type B RNA (NEGATIVE) SARS-CoV-2 RNA (MAGY) (NEGATIVE) 09/05/20 Range/Units 16:15 WBC (4.0-11.0) K/uL RBC (4.30-5.90) M/uL Hgb (12.0-16.0) g/dL Hct (36.0-46.0) % MCV (80.0-98.0) fL MCH (27.0-32.0) pg MCHC (31.0-37.0) g/dL RDW Std Deviation (28.0-62.0) fl RDW Coeff of Jose (11.0-15.0) % Plt Count (150-400) K/uL MPV (7.40-12.00) fL Neut % (Auto) (48.0-80.0) % Lymph % (Auto) (16.0-40.0) % [place] % (Auto) (0.0-15.0) % Eos % (Auto) (0.0-7.0) % Baso % (Auto) (0.0-1.5) % Neut # (Auto) (1.4-5.7) K/uL Lymph # (Auto) (0.6-2.4) K/uL [place] # (Auto) (0.0-0.8) K/uL Eos # (Auto) (0.0-0.7) K/uL Baso # (Auto) (0.0-0.1) K/uL Nucleated RBC % /100WBC Nucleated RBCs # K/uL Sodium (136-145) mmol/L Potassium (3.5-5.1) mmol/L Chloride (98-107) mmol/L Carbon Dioxide (21.0-32.0) mmol/L BUN (7.0-18.0) mg/dL Creatinine (0.6-1.0) mg/dL Est Cr Clr Drug Dosing mL/min Estimated GFR (MDRD) ml/min Glucose (74-106) mg/dL Calcium (8.5-10.1) mg/dL Total Bilirubin (0.2-1.0) mg/dL AST (15-37) IU/L ALT (14-63) IU/L Alkaline Phosphatase (46-116) U/L Troponin I (0.000-0.056) ng/mL Total Protein (6.4-8.2) g/dL Albumin (3.4-5.0) g/dL Globulin (2.6-4.0) g/dL Albumin/Globulin Ratio (0.9-1.6) HCG, Qual (NEG) Influenza Type A RNA NEGATIVE (NEGATIVE) Influenza Type B RNA NEGATIVE (NEGATIVE) SARS-CoV-2 RNA (MAGY) NEGATIVE (NEGATIVE) Result Diagrams: 09/05/20 15:40 09/05/20 15:40 Sepsis Event Note - Evaluation Sepsis Screening Result: No Definite Risk - Focused Exam Vital Signs: Vital Signs Temp Pulse Resp BP Pulse Ox Pulse Ox 09/05/20 21:00 37.1 C 78 18 128/75 100 100 09/05/20 19:27 76 16 131/82 100 09/05/20 16:35 58 L 16 113/75 100 09/05/20 15:03 35.9 C L 56 L 16 111/74 95 - Problem List (1) Tibia/fibula fracture, shaft SNOMED Code(s): 057162162 ICD Code: S82.209A - UNSP FRACTURE OF SHAFT OF UNSP TIBIA, INIT FOR CLOS FX; S82.409A - UNSP FRACTURE OF SHAFT OF UNSP FIBULA, INIT FOR CLOS FX Status: Acute Current Visit: Yes Qualifiers: Encounter type: initial encounter Fracture type: closed Laterality: right Qualified Code(s): S82.201A - Unspecified fracture of shaft of right tibia, initial encounter for closed fracture; S82.401A - Unspecified fracture of shaft of right fibula, initial encounter for closed fracture Problem List Initiated/Reviewed/Updated: Yes Orders Last 24hrs: Active Orders 24 hr Category Date Time Status Admission Status [Patient Status] [ADT] Stat ADT 09/05/20 19:36 Active Cardiac Monitoring [RC] Q8H Care 09/05/20 14:20 Active Neurovascular Check [RC] Q2HR Care 09/05/20 22:05 Active Notify Provider Consults [RC] ASDIRECTED Care 09/05/20 19:44 Active Oxygen Therapy [RC] PRN Care 09/05/20 19:46 Active RT Aerosol Therapy [RC] ASDIRECTED Care 09/05/20 19:47 Active Telemetry Monitoring [Cardiac Monitoring] [RC] . Care 09/05/20 21:42 Active DIRECTED VTE/DVT Education [RC] DAILY Care 09/05/20 19:46 Active Vital Signs [RC] Q4H Care 09/05/20 19:46 Active Consult to Physician [CONS] Stat Cons 09/05/20 19:42 Active Clear Liquid Diet [DIET] Diet 09/05/20 Dinner Active BMP [BASIC METABOLIC PANEL,BMP] [CHEM] AM Lab 09/06/20 05:11 Ordered CBC WITH AUTO DIFF [HEME] AM Lab 09/06/20 05:11 Ordered MAGNESIUM [CHEM] AM Lab 09/06/20 05:11 Ordered PHOSPHORUS [CHEM] AM Lab 09/06/20 05:11 Ordered Albuterol/Ipratropium [DuoNeb 3.0-0.5 MG/3 ML] Med 09/05/20 19:45 Active 3 ml NEB Q4HRRT PRN Enoxaparin [Lovenox] Med 09/06/20 10:00 Active 40 mg SUBCUT Q24H HYDROmorphone [Dilaudid] Med 09/05/20 19:45 Active 0.5 mg IVPUSH Q2H PRN Lactated Ringers [Ringers, Lactated] 1,000 ml Med 09/05/20 19:45 Active IV ASDIRECTED Ondansetron [Zofran] Med 09/05/20 19:45 Active 4 mg IVPUSH Q4H PRN Resuscitation Status Routine Resus Stat 09/05/20 19:45 Ordered Medication Orders Albuterol/Ipratropium (Duoneb 3.0-0.5 Mg/3 Ml) 3 ml NEB Q4HRRT PRN PRN Reason: Shortness Of Breath/wheezing Enoxaparin Sodium (Lovenox) 40 mg SUBCUT Q24H MICHEL Hydromorphone HCl (Dilaudid) 0.5 mg IVPUSH Q2H PRN PRN Reason: Pain (severe 7-10) Last Admin: 09/05/20 21:10 Dose: 0.5 mg Documented by: NATALIO Lactated Ringer's (Ringers, Lactated) 1,000 mls @ 125 mls/hr IV ASDIRECTED MICHEL Last Admin: 09/05/20 20:51 Dose: 125 mls/hr Documented by: NATALIO Ondansetron HCl (Zofran) 4 mg IVPUSH Q4H PRN PRN Reason: Nausea/Vomiting Last Admin: 09/05/20 21:11 Dose: 4 mg Documented by: NATALIO Assessment/Plan Comment:: 45 y/ F admitted for distal Tibia/Fibula fracture (right) cont IV fluids Pain control with Dilaudid NPO past midnight for now till we get further recs from ortho in AM Lovenox for DVT ppx IV Zofran for Nausea Neuro-vascular checks Consult Ortho
[2020-09-06] MEDS: Lactated Ringers 1,000 ML IV SCH ×2 (05:01→13:41)
[2020-09-06] MEDS: Ondansetron 4 MG/2 ML SDV IVPUSH PRN ×2 (05:36→09:56)
[2020-09-06] MEDS: HYDROmorphone 2 MG/ML Syringe IVPUSH PRN (05:38)
[2020-09-06 06:39] LABS: BLOOD UREA NITROGEN,BUN 17 mg/dL (7.0-18.0); CARBON DIOXIDE,CO2 24.7 mmol/L (21.0-32.0); CHLORIDE,CL 107 mmol/L (98-107); GLUCOSE RANDOM 103 mg/dL (74-106); POTASSIUM,K 4.1 mmol/L (3.5-5.1); SODIUM,NA 142 mmol/L (136-145)
[2020-09-06] MEDS ORDERED: HYDROmorphone 1 MG/ML Syringe IVPUSH PRN (07:30)
[2020-09-06] MEDS ORDERED: cefTRIAXone 1 GM Vial IVPUSH ONE (07:37)
--- NOTE | 2020-09-06 07:53 | PCM.PREANE ---
Preanesthetic Assessment - Anesthesia/Transfusion/Family Hx Anesthesia History: Prior Anesthesia Without Reaction Family History of Anesthesia Reaction: No Transfusion History: No Prior Transfusion(s) Intubation History: Unknown - Review of Systems General: No Symptoms Pulmonary: No Symptoms Cardiovascular: No Symptoms Gastrointestinal: No Symptoms Neurological: No Symptoms Other: Reports: None - Physical Assessment Vital Signs: Last Vital Signs Temp 98.1 F 09/06/20 04:00 Pulse 72 09/06/20 04:00 Resp 18 09/06/20 04:00 BP 125/75 09/06/20 04:00 Pulse Ox 98 09/06/20 04:00 Height: 5 ft 4 in Weight: 65.771 kg ASA Class: 2 Mental Status: Alert & Oriented x3 Airway Class: Mallampati = 2 Dentition: Reports: Normal Dentition Thyro-Mental Finger Breadths: 3 Mouth Opening Finger Breadths: 3 ROM/Head Extension: Full Lungs: Clear to Auscultation, Normal Respiratory Effort Cardiovascular: Regular Rate, Regular Rhythm - Lab Values: Laboratory Last Values WBC 11.73 K/uL (4.0-11.0) H 09/06/20 06:00 RBC 3.89 M/uL (4.30-5.90) L 09/06/20 06:00 Hgb 11.6 g/dL (12.0-16.0) L 09/06/20 06:00 Hct 36.2 % (36.0-46.0) 09/06/20 06:00 MCV 93.1 fL (80.0-98.0) 09/06/20 06:00 MCH 29.8 pg (27.0-32.0) 09/06/20 06:00 MCHC 32.0 g/dL (31.0-37.0) 09/06/20 06:00 RDW Std Deviation 44.3 fl (28.0-62.0) 09/06/20 06:00 RDW Coeff of Jose 13 % (11.0-15.0) 09/06/20 06:00 Plt Count 168 K/uL (150-400) 09/06/20 06:00 MPV 10.70 fL (7.40-12.00) 09/06/20 06:00 Neut % (Auto) 72.2 % (48.0-80.0) 09/06/20 06:00 Lymph % (Auto) 18.2 % (16.0-40.0) 09/06/20 06:00 [place] % (Auto) 9.2 % (0.0-15.0) 09/06/20 06:00 Eos % (Auto) 0.1 % (0.0-7.0) 09/06/20 06:00 Baso % (Auto) 0.3 % (0.0-1.5) 09/06/20 06:00 Neut # (Auto) 8.5 K/uL (1.4-5.7) H 09/06/20 06:00 Lymph # (Auto) 2.1 K/uL (0.6-2.4) 09/06/20 06:00 [place] # (Auto) 1.1 K/uL (0.0-0.8) H 09/06/20 06:00 Eos # (Auto) 0.0 K/uL (0.0-0.7) 09/06/20 06:00 Baso # (Auto) 0.0 K/uL (0.0-0.1) 09/06/20 06:00 Nucleated RBC % 0.0 /100WBC 09/06/20 06:00 Nucleated RBCs # 0 K/uL 09/06/20 06:00 Sodium 142 mmol/L (136-145) 09/06/20 06:00 Potassium 4.1 mmol/L (3.5-5.1) 09/06/20 06:00 Chloride 107 mmol/L (98-107) 09/06/20 06:00 Carbon Dioxide 24.7 mmol/L (21.0-32.0) 09/06/20 06:00 BUN 17 mg/dL (7.0-18.0) 09/06/20 06:00 Creatinine 0.9 mg/dL (0.6-1.0) 09/06/20 06:00 Est Cr Clr Drug Dosing 68.88 mL/min 09/06/20 06:00 Estimated GFR (MDRD) > 60.0 ml/min 09/06/20 06:00 Glucose 103 mg/dL (74-106) 09/06/20 06:00 Calcium 8.5 mg/dL (8.5-10.1) 09/06/20 06:00 Phosphorus 3.3 mg/dL (2.6-4.7) 09/06/20 06:00 Magnesium 2.0 mg/dL (1.8-2.4) 09/06/20 06:00 Total Bilirubin 0.2 mg/dL (0.2-1.0) 09/05/20 15:40 AST 18 IU/L (15-37) 09/05/20 15:40 ALT 22 IU/L (14-63) 09/05/20 15:40 Alkaline Phosphatase 52 U/L (46-116) 09/05/20 15:40 Troponin I < 0.050 ng/mL (0.000-0.056) 09/05/20 15:40 Total Protein 7.3 g/dL (6.4-8.2) 09/05/20 15:40 Albumin 3.9 g/dL (3.4-5.0) 09/05/20 15:40 Globulin 3.4 g/dL (2.6-4.0) 09/05/20 15:40 Albumin/Globulin Ratio 1.1 (0.9-1.6) 09/05/20 15:40 HCG, Qual NEGATIVE (NEG) 09/05/20 15:40 Urine Color YELLOW 09/06/20 00:10 Urine Appearance SLT CLOUDY 09/06/20 00:10 Urine pH 6.0 (5.0-8.0) 09/06/20 00:10 Ur Specific Chloe >= 1.030 (1.001-1.035) 09/06/20 00:10 Urine Protein NEGATIVE mg/dL (NEGATIVE) 09/06/20 00:10 Urine Glucose (UA) NEGATIVE mg/dL (NEGATIVE) 09/06/20 00:10 Urine Ketones 40 mg/dL (NEGATIVE) H 09/06/20 00:10 Urine Occult Blood NEGATIVE (NEGATIVE) 09/06/20 00:10 Urine Nitrite NEGATIVE (NEGATIVE) 09/06/20 00:10 Urine Bilirubin NEGATIVE (NEGATIVE) 09/06/20 00:10 Urine Urobilinogen 0.2 EU/dL (<2.0) 09/06/20 00:10 Ur Leukocyte Esterase TRACE (NEGATIVE) H 09/06/20 00:10 U Hyaline Cast (Auto) 0-1 (0-2/LPF) 09/06/20 00:10 Urine RBC 0-2 (0-2/HPF) 09/06/20 00:10 Urine WBC 1-4 (0-5/HPF) 09/06/20 00:10 Ur Epithelial Cells OCCASIONAL (NONE-FEW) 09/06/20 00:10 Urine Bacteria 1+ (NEGATIVE) H 09/06/20 00:10 Urine Mucus LIGHT (NONE-MOD) 09/06/20 00:10 Influenza Type A RNA NEGATIVE (NEGATIVE) 09/05/20 16:15 Influenza Type B RNA NEGATIVE (NEGATIVE) 09/05/20 16:15 SARS-CoV-2 RNA (MAGY) NEGATIVE (NEGATIVE) 09/05/20 16:15 - Allergies Allergies/Adverse Reactions: Allergies Allergy/AdvReac Type Severity Reaction Status Date / Time benzoyl peroxide Allergy Rash Verified 09/05/20 22:29 - Anesthesia Plan Free Text/Narrative:: Pt was seen in anticipation of surgical intervention this week. Pt was admitted for pain and nausea control. Pt states that her pain is fairly well controlled on her IV dilaudid; however, she is requiring IV zofran with each dose due to severe nausea. Spoke to the patient about a Scop patch and the patient wishes to have one placed. We will await the ortho teams decision on surgical intervention. - Acknowledgements Anesthesia Type Planned: General Anesthesia Pt an Appropriate Candidate for the Planned Anesthesia: Yes Alternatives and Risks of Anesthesia Discussed w Pt/Guardian: Yes Pt/Guardian Understands and Agrees with Anesthesia Plan: Yes PreAnesthesia Questionnaire - Past Health History Medical/Surgical History: Denies Medical/Surgical History HEENT History: Reports: Sinusitis Cardiovascular History: Reports: Hypertension (No RX currently) Respiratory History: Reports: None Gastrointestinal History: Reports: Other (See Below) (PONV) Genitourinary History: Reports: None Musculoskeletal History: Reports: None Neurological History: Reports: None Psychiatric History: Reports: None Endocrine/Metabolic History: Reports: None Hematologic History: Reports: None Immunologic History: Reports: None Oncologic (Cancer) History: Reports: None Dermatologic History: Reports: None - Infectious Disease History Infectious Disease History: Reports: Chicken Pox - Past Surgical History HEENT Surgical History: Reports: Other (See Below) Other HEENT Surgeries/Procedures: nasal polyps removal - SUBSTANCE USE Tobacco Use Status *Q: Never Tobacco User Tobacco Use Within Last Twelve Months: No Recreational Drug Use History: No - HOME MEDS Home Medications: Home Meds . [No Known Home Meds] 09/05/20 [History] - CURRENT (IN HOUSE) MEDS Current Meds: Current Medications Albuterol/Ipratropium (Duoneb 3.0-0.5 Mg/3 Ml) 3 ml NEB Q4HRRT PRN PRN Reason: Shortness Of Breath/wheezing Ceftriaxone Sodium (Rocephin) 1 gm IVPUSH ONETIME ONE Stop: 09/06/20 07:38 Enoxaparin Sodium (Lovenox) 40 mg SUBCUT Q24H [facility] Hydromorphone HCl (Dilaudid) 0.5 mg IVPUSH Q2H PRN PRN Reason: Pain (severe 7-10) Lactated Ringer's (Ringers, Lactated) 1,000 mls @ 125 mls/hr IV ASDIRECTED MICHEL Last Admin: 09/06/20 05:01 Dose: 125 mls/hr Documented by: Ondansetron HCl (Zofran) 4 mg IVPUSH Q4H PRN PRN Reason: Nausea/Vomiting Last Admin: 09/06/20 05:36 Dose: 4 mg Documented by: Discontinued Medications Hydromorphone HCl (Dilaudid) 0.5 mg IVPUSH ONETIME ONE Stop: 09/05/20 14:16 Last Admin: 09/05/20 14:27 Dose: 0.5 mg Documented by: Hydromorphone HCl (Dilaudid) 0.5 mg IVPUSH ONETIME ONE Stop: 09/05/20 14:47 Last Admin: 09/05/20 14:56 Dose: 0.5 mg Documented by: Hydromorphone HCl (Dilaudid) 0.5 mg IVPUSH Q2H PRN PRN Reason: Pain (severe 7-10) Last Admin: 09/06/20 05:38 Dose: 0.5 mg Documented by: Sodium Chloride (Normal Saline) 1,000 mls @ 999 mls/hr IV STAT ONE Stop: 09/05/20 15:27 Last Admin: 09/05/20 14:56 Dose: 999 mls/hr Documented by: Ketorolac Tromethamine (Toradol) 30 mg IVPUSH ONETIME ONE Stop: 09/05/20 19:03 Last Admin: 09/05/20 19:25 Dose: 30 mg Documented by: Ondansetron HCl (Zofran) 4 mg IVPUSH ONETIME ONE Stop: 09/05/20 14:16 Last Admin: 09/05/20 14:27 Dose: 4 mg Documented by: Ondansetron HCl (Zofran) 4 mg IVPUSH ONETIME ONE Stop: 09/05/20 15:53 Last Admin: 09/05/20 16:20 Dose: 4 mg Documented by:
[2020-09-06] MEDS ORDERED: Scopolamine 1.5 MG Transdermal Patch TRDERM PRN (08:00)
[2020-09-06] MEDS ORDERED: Acetaminophen 325 MG Tab PO PRN (08:36)
[2020-09-06] MEDS: cefTRIAXone 1 GM in Premix Bag 1 BAG IV SCH (08:37)
[2020-09-06] MEDS: Morphine 4 MG/ML Syringe IVPUSH PRN ×3 (08:45→23:59)
--- NOTE | 2020-09-06 08:53 | PCM.PN ---
- General Info Date of Service: 09/06/20 Admission Dx/Problem (Free Text): Admission Diagnosis/Problem Admission Diagnosis/Problem Pain Subjective Update: Reports she is still nauseated this morning. Feels this is related to the narcotic use as she is not used to them. Denies any chest pain shortness of breath reports pain to her leg is tolerable at this time but pain medication wears off quickly. Denies any numbness tingling or severe pain to lower extremity. Functional Status: Reports: Ambulating, Urinating. Denies: Pain Controlled - Review of Systems General: Reports: No Symptoms. Denies: Fever, Weakness, Fatigue Pulmonary: Reports: No Symptoms. Denies: Shortness of Breath Cardiovascular: Reports: No Symptoms. Denies: Chest Pain Gastrointestinal: Reports: No Symptoms. Denies: Abdominal Pain, Nausea, Vomiting Genitourinary: Reports: No Symptoms. Denies: Dysuria, Frequency, Burning Skin: Reports: No Symptoms Neurological: Reports: No Symptoms. Denies: Numbness, Paresthesia, Tingling Psychiatric: Reports: No Symptoms - Patient Data Vitals - Most Recent: Last Vital Signs Temp 96.7 F L 09/06/20 08:00 Pulse 70 09/06/20 08:00 Resp 17 09/06/20 08:00 BP 142/76 H 09/06/20 08:00 Pulse Ox 97 09/06/20 08:00 Weight - Most Recent: 65.771 kg I&O - Last 24 Hours: Intake & Output 09/05/20 09/06/20 09/06/20 22:59 06:59 14:59 Intake Total 200 Output Total 720 Balance -520 Lab Results Last 24 Hours: Laboratory Results - last 24 hr 09/05/20 09/05/20 09/05/20 Range/Units 15:40 15:40 15:40 WBC 19.35 H (4.0-11.0) K/uL RBC 4.52 (4.30-5.90) M/uL Hgb 13.5 (12.0-16.0) g/dL Hct 42.3 (36.0-46.0) % MCV 93.6 (80.0-98.0) fL MCH 29.9 (27.0-32.0) pg MCHC 31.9 (31.0-37.0) g/dL RDW Std Deviation 45.0 (28.0-62.0) fl RDW Coeff of Jose 13 (11.0-15.0) % Plt Count 179 (150-400) K/uL MPV 10.80 (7.40-12.00) fL Neut % (Auto) 85.9 H (48.0-80.0) % Lymph % (Auto) 8.1 L (16.0-40.0) % [place] % (Auto) 5.2 (0.0-15.0) % Eos % (Auto) 0.5 (0.0-7.0) % Baso % (Auto) 0.3 (0.0-1.5) % Neut # (Auto) 16.6 H (1.4-5.7) K/uL Lymph # (Auto) 1.6 (0.6-2.4) K/uL [place] # (Auto) 1.0 H (0.0-0.8) K/uL Eos # (Auto) 0.1 (0.0-0.7) K/uL Baso # (Auto) 0.1 (0.0-0.1) K/uL Nucleated RBC % 0.0 /100WBC Nucleated RBCs # 0 K/uL Sodium 143 (136-145) mmol/L Potassium 3.6 (3.5-5.1) mmol/L Chloride 108 H (98-107) mmol/L Carbon Dioxide 21.3 (21.0-32.0) mmol/L BUN 16 (7.0-18.0) mg/dL Creatinine 1.0 (0.6-1.0) mg/dL Est Cr Clr Drug Dosing 61.99 mL/min Estimated GFR (MDRD) > 60.0 ml/min Glucose 114 H (74-106) mg/dL Calcium 8.9 (8.5-10.1) mg/dL Phosphorus (2.6-4.7) mg/dL Magnesium (1.8-2.4) mg/dL Total Bilirubin 0.2 (0.2-1.0) mg/dL AST 18 (15-37) IU/L ALT 22 (14-63) IU/L Alkaline Phosphatase 52 (46-116) U/L Troponin I < 0.050 (0.000-0.056) ng/mL Total Protein 7.3 (6.4-8.2) g/dL Albumin 3.9 (3.4-5.0) g/dL Globulin 3.4 (2.6-4.0) g/dL Albumin/Globulin Ratio 1.1 (0.9-1.6) HCG, Qual NEGATIVE (NEG) Urine Color Urine Appearance Urine pH (5.0-8.0) Ur Specific [place] (1.001-1.035) Urine Protein (NEGATIVE) mg/dL Urine Glucose (UA) (NEGATIVE) mg/dL Urine Ketones (NEGATIVE) mg/dL Urine Occult Blood (NEGATIVE) Urine Nitrite (NEGATIVE) Urine Bilirubin (NEGATIVE) Urine Urobilinogen (<2.0) EU/dL Ur Leukocyte Esterase (NEGATIVE) U Hyaline Cast (Auto) (0-2/LPF) Urine RBC (0-2/HPF) Urine WBC (0-5/HPF) Ur Epithelial Cells (NONE-FEW) Urine Bacteria (NEGATIVE) Urine Mucus (NONE-MOD) Influenza Type A RNA (NEGATIVE) Influenza Type B RNA (NEGATIVE) SARS-CoV-2 RNA (MAGY) (NEGATIVE) 09/05/20 09/06/20 09/06/20 Range/Units 16:15 00:10 06:00 WBC 11.73 H (4.0-11.0) K/uL RBC 3.89 L (4.30-5.90) M/uL Hgb 11.6 L (12.0-16.0) g/dL Hct 36.2 (36.0-46.0) % MCV 93.1 (80.0-98.0) fL MCH 29.8 (27.0-32.0) pg MCHC 32.0 (31.0-37.0) g/dL RDW Std Deviation 44.3 (28.0-62.0) fl RDW Coeff of Jose 13 (11.0-15.0) % Plt Count 168 (150-400) K/uL MPV 10.70 (7.40-12.00) fL Neut % (Auto) 72.2 (48.0-80.0) % Lymph % (Auto) 18.2 (16.0-40.0) % [place] % (Auto) 9.2 (0.0-15.0) % Eos % (Auto) 0.1 (0.0-7.0) % Baso % (Auto) 0.3 (0.0-1.5) % Neut # (Auto) 8.5 H (1.4-5.7) K/uL Lymph # (Auto) 2.1 (0.6-2.4) K/uL [place] # (Auto) 1.1 H (0.0-0.8) K/uL Eos # (Auto) 0.0 (0.0-0.7) K/uL Baso # (Auto) 0.0 (0.0-0.1) K/uL Nucleated RBC % 0.0 /100WBC Nucleated RBCs # 0 K/uL Sodium (136-145) mmol/L Potassium (3.5-5.1) mmol/L Chloride (98-107) mmol/L Carbon Dioxide (21.0-32.0) mmol/L BUN (7.0-18.0) mg/dL Creatinine (0.6-1.0) mg/dL Est Cr Clr Drug Dosing mL/min Estimated GFR (MDRD) ml/min Glucose (74-106) mg/dL Calcium (8.5-10.1) mg/dL Phosphorus (2.6-4.7) mg/dL Magnesium (1.8-2.4) mg/dL Total Bilirubin (0.2-1.0) mg/dL AST (15-37) IU/L ALT (14-63) IU/L Alkaline Phosphatase (46-116) U/L Troponin I (0.000-0.056) ng/mL Total Protein (6.4-8.2) g/dL Albumin (3.4-5.0) g/dL Globulin (2.6-4.0) g/dL Albumin/Globulin Ratio (0.9-1.6) HCG, Qual (NEG) Urine Color YELLOW Urine Appearance SLT CLOUDY Urine pH 6.0 (5.0-8.0) Ur Specific [place] >= 1.030 (1.001-1.035) Urine Protein NEGATIVE (NEGATIVE) mg/dL Urine Glucose (UA) NEGATIVE (NEGATIVE) mg/dL Urine Ketones 40 H (NEGATIVE) mg/dL Urine Occult Blood NEGATIVE (NEGATIVE) Urine Nitrite NEGATIVE (NEGATIVE) Urine Bilirubin NEGATIVE (NEGATIVE) Urine Urobilinogen 0.2 (<2.0) EU/dL Ur Leukocyte Esterase TRACE H (NEGATIVE) U Hyaline Cast (Auto) 0-1 (0-2/LPF) Urine RBC 0-2 (0-2/HPF) Urine WBC 1-4 (0-5/HPF) Ur Epithelial Cells OCCASIONAL (NONE-FEW) Urine Bacteria 1+ H (NEGATIVE) Urine Mucus LIGHT (NONE-MOD) Influenza Type A RNA NEGATIVE (NEGATIVE) Influenza Type B RNA NEGATIVE (NEGATIVE) SARS-CoV-2 RNA (MAGY) NEGATIVE (NEGATIVE) 09/06/20 Range/Units 06:00 WBC (4.0-11.0) K/uL RBC (4.30-5.90) M/uL Hgb (12.0-16.0) g/dL Hct (36.0-46.0) % MCV (80.0-98.0) fL MCH (27.0-32.0) pg MCHC (31.0-37.0) g/dL RDW Std Deviation (28.0-62.0) fl RDW Coeff of Jose (11.0-15.0) % Plt Count (150-400) K/uL MPV (7.40-12.00) fL Neut % (Auto) (48.0-80.0) % Lymph % (Auto) (16.0-40.0) % [place] % (Auto) (0.0-15.0) % Eos % (Auto) (0.0-7.0) % Baso % (Auto) (0.0-1.5) % Neut # (Auto) (1.4-5.7) K/uL Lymph # (Auto) (0.6-2.4) K/uL [place] # (Auto) (0.0-0.8) K/uL Eos # (Auto) (0.0-0.7) K/uL Baso # (Auto) (0.0-0.1) K/uL Nucleated RBC % /100WBC Nucleated RBCs # K/uL Sodium 142 (136-145) mmol/L Potassium 4.1 (3.5-5.1) mmol/L Chloride 107 (98-107) mmol/L Carbon Dioxide 24.7 (21.0-32.0) mmol/L BUN 17 (7.0-18.0) mg/dL Creatinine 0.9 (0.6-1.0) mg/dL Est Cr Clr Drug Dosing 68.88 mL/min Estimated GFR (MDRD) > 60.0 ml/min Glucose 103 (74-106) mg/dL Calcium 8.5 (8.5-10.1) mg/dL Phosphorus 3.3 (2.6-4.7) mg/dL Magnesium 2.0 (1.8-2.4) mg/dL Total Bilirubin (0.2-1.0) mg/dL AST (15-37) IU/L ALT (14-63) IU/L Alkaline Phosphatase (46-116) U/L Troponin I (0.000-0.056) ng/mL Total Protein (6.4-8.2) g/dL Albumin (3.4-5.0) g/dL Globulin (2.6-4.0) g/dL Albumin/Globulin Ratio (0.9-1.6) HCG, Qual (NEG) Urine Color Urine Appearance Urine pH (5.0-8.0) Ur Specific [place] (1.001-1.035) Urine Protein (NEGATIVE) mg/dL Urine Glucose (UA) (NEGATIVE) mg/dL Urine Ketones (NEGATIVE) mg/dL Urine Occult Blood (NEGATIVE) Urine Nitrite (NEGATIVE) Urine Bilirubin (NEGATIVE) Urine Urobilinogen (<2.0) EU/dL Ur Leukocyte Esterase (NEGATIVE) U Hyaline Cast (Auto) (0-2/LPF) Urine RBC (0-2/HPF) Urine WBC (0-5/HPF) Ur Epithelial Cells (NONE-FEW) Urine Bacteria (NEGATIVE) Urine Mucus (NONE-MOD) Influenza Type A RNA (NEGATIVE) Influenza Type B RNA (NEGATIVE) SARS-CoV-2 RNA (MAGY) (NEGATIVE) Med Orders - Current: Current Medications Acetaminophen (Tylenol) 650 mg PO Q4H PRN PRN Reason: Pain Albuterol/Ipratropium (Duoneb 3.0-0.5 Mg/3 Ml) 3 ml NEB Q4HRRT PRN PRN Reason: Shortness Of Breath/wheezing Lactated Ringer's (Ringers, Lactated) 1,000 mls @ 125 mls/hr IV ASDIRECTED [facility] Last Admin: 09/06/20 05:01 Dose: 125 mls/hr Documented by: Ceftriaxone Sodium/Dextrose 1 (gm/ Premix) 50 mls @ 100 mls/hr IV Q24H MICHEL Last Admin: 09/06/20 08:37 Dose: 100 mls/hr Documented by: Morphine Sulfate (Morphine) 3 mg IVPUSH Q3H PRN PRN Reason: Pain Last Admin: 09/06/20 08:45 Dose: 3 mg Documented by: Ondansetron HCl (Zofran) 4 mg IVPUSH Q4H PRN PRN Reason: Nausea/Vomiting Last Admin: 09/06/20 05:36 Dose: 4 mg Documented by: Oxycodone HCl (Oxycodone) 5 mg PO Q4H PRN PRN Reason: Pain Scopolamine (Transderm-Scop) 1.5 mg TRDERM Q72H PRN PRN Reason: Vomiting Last Admin: 09/06/20 08:36 Dose: 1.5 mg Documented by: Discontinued Medications Enoxaparin Sodium (Lovenox) 40 mg SUBCUT Q24H [facility] Hydromorphone HCl (Dilaudid) 0.5 mg IVPUSH ONETIME ONE Stop: 09/05/20 14:16 Last Admin: 09/05/20 14:27 Dose: 0.5 mg Documented by: Hydromorphone HCl (Dilaudid) 0.5 mg IVPUSH ONETIME ONE Stop: 09/05/20 14:47 Last Admin: 09/05/20 14:56 Dose: 0.5 mg Documented by: Hydromorphone HCl (Dilaudid) 0.5 mg IVPUSH Q2H PRN PRN Reason: Pain (severe 7-10) Last Admin: 09/06/20 05:38 Dose: 0.5 mg Documented by: Hydromorphone HCl (Dilaudid) 0.5 mg IVPUSH Q2H PRN PRN Reason: Pain (severe 7-10) Sodium Chloride (Normal Saline) 1,000 mls @ 999 mls/hr IV STAT ONE Stop: 09/05/20 15:27 Last Admin: 09/05/20 14:56 Dose: 999 mls/hr Documented by: Ketorolac Tromethamine (Toradol) 30 mg IVPUSH ONETIME ONE Stop: 09/05/20 19:03 Last Admin: 01/17/21 19:25 Dose: 30 mg Documented by: Ondansetron HCl (Zofran) 4 mg IVPUSH ONETIME ONE Stop: 09/05/20 14:16 Last Admin: 09/05/20 14:27 Dose: 4 mg Documented by: Ondansetron HCl (Zofran) 4 mg IVPUSH ONETIME ONE Stop: 09/05/20 15:53 Last Admin: 09/05/20 16:20 Dose: 4 mg Documented by: - Exam General: Alert, Oriented, Cooperative, No Acute Distress Lungs: Clear to Auscultation, Normal Respiratory Effort Cardiovascular: Regular Rate, Regular Rhythm GI/Abdominal Exam: Normal Bowel Sounds, Soft, Non-Tender Back Exam: Normal Inspection, Full Range of Motion Extremities: Normal Inspection, Normal Range of Motion, Non-Tender, No Pedal Edema, Normal Capillary Refill, Leg Pain, Other (No numbness or tingling to right lower extremity.) Skin: Warm, Dry Neurological: No New Focal Deficit Psy/Mental Status: Alert, Normal Affect, Normal Mood Sepsis Event Note - Evaluation Sepsis Screening Result: No Definite Risk - Focused Exam Vital Signs: Vital Signs Temp Pulse Resp BP Pulse Ox Pulse Ox 09/06/20 08:00 96.7 F L 70 17 142/76 H 97 09/06/20 04:00 98.1 F 72 18 125/75 98 09/06/20 00:00 98.2 F 75 18 121/71 98 09/05/20 21:00 98.7 F 78 18 128/75 100 100 - Problem List & Annotations (1) Tibia/fibula fracture, shaft SNOMED Code(s): 147470066 Code(s): S82.209A - UNSP FRACTURE OF SHAFT OF UNSP TIBIA, INIT FOR CLOS FX; S82.409A - UNSP FRACTURE OF SHAFT OF UNSP FIBULA, INIT FOR CLOS FX Status: Acute Current Visit: Yes Qualifiers: Encounter type: initial encounter Fracture type: closed Laterality: right Qualified Code(s): S82.201A - Unspecified fracture of shaft of right tibia, initial encounter for closed fracture; S82.401A - Unspecified fracture of shaft of right fibula, initial encounter for closed fracture (2) Nausea SNOMED Code(s): 163929257 Code(s): R11.0 - NAUSEA Status: Acute Current Visit: Yes (3) Pain SNOMED Code(s): 32007849 Code(s): R52 - PAIN, UNSPECIFIED Status: Acute Current Visit: Yes - Problem List Review Problem List Initiated/Reviewed/Updated: Yes - My Orders Last 24 Hours: My Active Orders 09/06/20 Breakfast Regular Diet [DIET] 09/06/20 07:59 Intake and Output [RC] Q12H 09/06/20 08:00 Certified Paralegal Discontinue [Cardiac Monitoring Discontinue] [RC] Click to Edit 09/06/20 08:33 Morphine 3 mg IVPUSH Q3H PRN 09/06/20 08:36 Consult to Physician [CONS] Routine Acetaminophen [TylenoL] 650 mg PO Q4H PRN oxyCODONE 5 mg PO Q4H PRN 09/06/20 08:37 Notify Provider Consults [RC] ASDIRECTED 09/07/20 05:11 BASIC METABOLIC PANEL,BMP [CHEM] AM CBC WITH AUTO DIFF [HEME] AM MAGNESIUM [CHEM] AM 09/08/20 05:11 BASIC METABOLIC PANEL,BMP [CHEM] AM CBC WITH AUTO DIFF [HEME] AM MAGNESIUM [CHEM] AM 09/09/20 05:11 BASIC METABOLIC PANEL,BMP [CHEM] AM CBC WITH AUTO DIFF [HEME] AM MAGNESIUM [CHEM] AM 09/10/20 05:11 BASIC METABOLIC PANEL,BMP [CHEM] AM CBC WITH AUTO DIFF [HEME] AM MAGNESIUM [CHEM] AM 09/11/20 05:11 BASIC METABOLIC PANEL,BMP [CHEM] AM CBC WITH AUTO DIFF [HEME] AM MAGNESIUM [CHEM] AM - Plan Plan:: 45 y/ F admitted for distal Tibia/Fibula fracture (right) 1. Right tib-fib fracture -Consult orthopedics, Dr. Case now on. Surgical intervention likely Sunday - cont IV fluids as she is still nauseated stop when she is tolerating p.o. - Wants to try morphine as fentanyl and Dilaudid have made her significantly nauseated. -Regular diet - Zofran as needed nausea anesthesia also added scope patch will monitor - Neuro-vascular checks every 2 hours - Ice therapy to right lower leg - Since she is able to have diet today will start p.o. pain medications and monitor tolerance -Get pain controlled and nausea controlled today as well as consult PT for crutch walking. Once stable will likely be able to discharge home VTE prophylaxis: Swathinox CODE STATUS: Full code Dispo: 1 to 2 days pending pain/nausea improvement
[2020-09-06] MEDS: oxyCODONE 5 MG Tab PO PRN ×3 (09:56→21:21)
[2020-09-06] MEDS: Enoxaparin 40 MG/0.4 ML Syringe SUBCUT SCH (09:56)
[2020-09-06] MEDS ORDERED: Enoxaparin 40 MG/0.4 ML Syringe SUBCUT SCH (10:00)
[2020-09-07] MEDS: oxyCODONE 5 MG Tab PO PRN ×3 (02:53→11:13)
[2020-09-07] MEDS: Morphine 4 MG/ML Syringe IVPUSH PRN (04:52)
[2020-09-07 05:10] LABS: BLOOD UREA NITROGEN,BUN 12 mg/dL (7.0-18.0); CARBON DIOXIDE,CO2 25.8 mmol/L (21.0-32.0); CHLORIDE,CL 107 mmol/L (98-107); GLUCOSE RANDOM 104 mg/dL (74-106); SODIUM,NA 140 mmol/L (136-145)
[2020-09-07] MEDS: cefTRIAXone 1 GM in Premix Bag 1 BAG IV SCH (07:46)
--- NOTE | 2020-09-07 08:38 | PCM.DCSUM1 ---
Discharge Summary - Hospital Course Brief History: Patient is a 45-year-old female with PMH of Stage 1 HTN, Migraine, who presents emergency room today via EMS with concern of right lower leg injury. Patient states that she was on her child's hover board when she was trying to step off the hover board, she fell twisting her right lower extremity. Patient noticed obvious deformity of the lower extremity after her fall and called EMS. Patient received 75 mg of fentanyl for pain on route to the ER. Patient denied hitting her head or lose consciousness and has no other symptoms or complaints at this time. Patient denies fever, chills, chest pain, shortness of breath, or cough. Denies headache, neck stiff ness, change in vision, syncope, or near syncope. Denies nausea, vomiting, abdominal pain, diarrhea, constipation, or dysuria. Has not noted any blood in urine or stool. Patient has been eating and drinking appropriately. X-ray showed Acute comminuted displaced fracture of distal right tibia and fibula. Long posterir spilnt and sugar tong splint was applied to tabilze the fracture. 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 Er had called Orthopedic surgeon at [facility] as well, they had recommended transfer for possible surgery tomorrow but patient refused the transfer, preferred to stay here and be seen by ortho in AM. Diagnosis: Stroke: No - Discharge Data Discharge Date: 09/07/20 Discharge Disposition: Home, Self-Care 01 Condition: Good - Referral to Home Health Primary Care Physician: Scott Jenkins MD - Discharge Diagnosis/Problem(s) (1) Tibia/fibula fracture, shaft SNOMED Code(s): 141641772 ICD Code: S82.209A - UNSP FRACTURE OF SHAFT OF UNSP TIBIA, INIT FOR CLOS FX; S82.409A - UNSP FRACTURE OF SHAFT OF UNSP FIBULA, INIT FOR CLOS FX Status: Acute Current Visit: Yes Qualifiers: Encounter type: initial encounter Fracture type: closed Laterality: right Qualified Code(s): S82.201A - Unspecified fracture of shaft of right tibia, initial encounter for closed fracture; S82.401A - Unspecified fracture of shaft of right fibula, initial encounter for closed fracture (2) Nausea SNOMED Code(s): 486897272 ICD Code: R11.0 - NAUSEA Status: Acute Current Visit: Yes (3) Pain SNOMED Code(s): 87110335 ICD Code: R52 - PAIN, UNSPECIFIED Status: Acute Current Visit: Yes (4) UTI (urinary tract infection) SNOMED Code(s): 64556016 ICD Code: N39.0 - URINARY TRACT INFECTION, SITE NOT SPECIFIED Status: Acute Current Visit: Yes Qualifiers: Urinary tract infection type: acute cystitis Hematuria presence: without hematuria Qualified Code(s): N30.00 - Acute cystitis without hematuria - Patient Summary/Data Consults: Consultations 09/06/20 08:36 Consult to Physician [CONS] Routine 09/06/20 09:02 PT Evaluation and Treatment [CONS] Routine Hospital Course: Admission diagnoses: Right tib-fib fracture UTI Nausea/vomiting Pain control Discharge diagnoses: Right tib-fib fracture, surgery scheduled for Sunday as outpatient UTI UC mixed meme Nausea vomiting resolved Pain is well controlled She was admitted secondary to fall from [employer] board resulting in right tib-fib fracture. She was placed in splint in the ER and admitted for pain control as well as controlling nausea and vomiting. She was evaluated by Dr. Case, orthopedics who feels surgery is not urgent and would like swelling to reduce prior to surgical intervention. Surgery is scheduled for Sunday. She was started on oxycodone orally for pain control and has done well with this overnight along with Tylenol. After use of IV Dilaudid was discontinued nausea improved significantly. She was also placed on scopolamine patch which she can leave in place for another 2 days. She was evaluated by physical therapy for crutch walking. She reports she does this well feels more comfortable with a walker. I will send prescription home for wheeled walker due to her right tib- fib fracture and unsteady gait along with unsteady ground with snow and ice. Oxycodone has controlled pain well she is eating and drinking well and feels like she can go home today. On admission she was found to have small UTI UC shows mixed meme greater than 100,000 colonies. She was treated with 2 doses of Rocephin I will also send her home with Keflex for 4 days. She was counseled on no NSAIDs including Motrin ibuprofen Advil Aleve or aspirin prior to surgery and to start only taking when orthopedic surgeon tells her it is okay. She verbalized understanding. She was also counseled on elevation of extremity along with ice therapy which she understands. She is to be discharged home today with oxycodone 5 mg p.o. every 4 hours as needed for pain 20 tablets along with Tylenol and Zofran as needed. She will also be discharged home with Keflex for 4 more days for UTI. She is to monitor for loss of sensation increasing or worsening pain to the right lower extremity along with color changes or numbness and tingling.She is to return to ER or clinic if concerns should arise sooner than surgical date. - Patient Instructions Diet: Regular Diet as Tolerated Activity: Elevate Extremity, No Strenuous Activities Driving: Do Not Drive Showering/Bathing: May Shower, No Tub Bathing/Swimming Wound/Incision Care: Keep Operative Site/Wound Site Clean and Dry, Do NOT Change Dressing Other/Special Instructions: Keep leg elevated as much as possible. Ice therapy to R lower extremity. No NSAIDS (Motrin, Aleve, Advil, Ibuprofen or Aspirin) until after surgery or when instructed by Orthopedic surgeon. Return to ER if pain suddenly worsens, numbness or tingling to right foot, color change or loss of sensation. - Discharge Plan *PRESCRIPTION DRUG MONITORING PROGRAM REVIEWED*: Yes *COPY OF PRESCRIPTION DRUG MONITORING REPORT IN PATIENT CONSTANCE: Yes Prescriptions/Med Rec: cephALEXin [Keflex] 500 mg PO BID #8 cap oxyCODONE 5 mg PO Q4H PRN #20 tablet PRN Reason: Pain Ondansetron [Zofran ODT] 4 mg PO Q6H PRN #15 tab.dis PRN Reason: Nausea Home Medications: Home Meds Acetaminophen [Tylenol] 650 mg PO Q4H PRN tablet 09/07/20 [Rx] Ondansetron [Zofran ODT] 4 mg PO Q6H PRN #15 tab.dis 09/07/20 [Rx] cephALEXin [Keflex] 500 mg PO BID #8 cap 09/07/20 [Rx] oxyCODONE 5 mg PO Q4H PRN #20 tablet 09/07/20 [Rx] Oxygen Therapy Mode: Room Air Patient Handouts: Cast or Splint Care, Adult, [id number], Tibial Fracture, Adult, [id number], Urinary Tract Infection, Adult, How to Use Cold Therapy Referrals: Anthony Gar MD [Resident] - 09/08/20 3:00 pm - Discharge Summary/Plan Comment DC Time >30 min.: No - Patient Data Vitals - Most Recent: Last Vital Signs Temp 97.1 F 09/07/20 07:09 Pulse 67 09/07/20 07:09 Resp 16 09/07/20 07:09 BP 122/79 09/07/20 07:09 Pulse Ox 98 09/07/20 07:09 Weight - Most Recent: 65.771 kg I&O - Last 24 hours: Intake & Output 09/06/20 09/07/20 09/07/20 22:59 06:59 14:59 Intake Total 2829 1632 Output Total 900 Balance 2829 732 Lab Results - Last 24 hrs: Laboratory Results - last 24 hr 09/07/20 09/07/20 Range/Units 04:44 04:44 WBC 8.77 (4.0-11.0) K/uL RBC 3.75 L (4.30-5.90) M/uL Hgb 11.3 L (12.0-16.0) g/dL Hct 35.4 L (36.0-46.0) % MCV 94.4 (80.0-98.0) fL MCH 30.1 (27.0-32.0) pg MCHC 31.9 (31.0-37.0) g/dL RDW Std Deviation 45.3 (28.0-62.0) fl RDW Coeff of Jose 13 (11.0-15.0) % Plt Count 157 (150-400) K/uL MPV 10.70 (7.40-12.00) fL Neut % (Auto) 73.7 (48.0-80.0) % Lymph % (Auto) 13.3 L (16.0-40.0) % [place] % (Auto) 12.3 (0.0-15.0) % Eos % (Auto) 0.2 (0.0-7.0) % Baso % (Auto) 0.5 (0.0-1.5) % Neut # (Auto) 6.5 H (1.4-5.7) K/uL Lymph # (Auto) 1.2 (0.6-2.4) K/uL [place] # (Auto) 1.1 H (0.0-0.8) K/uL Eos # (Auto) 0.0 (0.0-0.7) K/uL Baso # (Auto) 0.0 (0.0-0.1) K/uL Nucleated RBC % 0.0 /100WBC Nucleated RBCs # 0 K/uL Sodium 140 (136-145) mmol/L Potassium 4.0 (3.5-5.1) mmol/L Chloride 107 (98-107) mmol/L Carbon Dioxide 25.8 (21.0-32.0) mmol/L BUN 12 (7.0-18.0) mg/dL Creatinine 1.0 (0.6-1.0) mg/dL Est Cr Clr Drug Dosing 61.99 mL/min Estimated GFR (MDRD) > 60.0 ml/min Glucose 104 (74-106) mg/dL Calcium 8.4 L (8.5-10.1) mg/dL Magnesium 1.8 (1.8-2.4) mg/dL TAMANNA Results - Last 24 hrs: Microbiology 09/06/20 00:10 Urine Culture - Final Urine, Clean Catch MIXED MEME >100,000 CFU/ML Med Orders - Current: Current Medications Acetaminophen (Tylenol) 650 mg PO Q4H PRN PRN Reason: Pain Albuterol/Ipratropium (Duoneb 3.0-0.5 Mg/3 Ml) 3 ml NEB Q4HRRT PRN PRN Reason: Shortness Of Breath/wheezing Enoxaparin Sodium (Lovenox) 40 mg SUBCUT Q24H [facility] Last Admin: 09/06/20 09:56 Dose: 40 mg Documented by: Ceftriaxone Sodium/Dextrose 1 (gm/ Premix) 50 mls @ 100 mls/hr IV Q24H MICHEL Last Admin: 09/07/20 07:46 Dose: 100 mls/hr Documented by: Morphine Sulfate (Morphine) 3 mg IVPUSH Q3H PRN PRN Reason: Pain Last Admin: 09/07/20 04:52 Dose: 3 mg Documented by: Ondansetron HCl (Zofran) 4 mg IVPUSH Q4H PRN PRN Reason: Nausea/Vomiting Last Admin: 09/07/20 00:00 Dose: 4 mg Documented by: Oxycodone HCl (Oxycodone) 5 mg PO Q4H PRN PRN Reason: Pain Last Admin: 09/07/20 07:30 Dose: 5 mg Documented by: Scopolamine (Transderm-Scop) 1.5 mg TRDERM Q72H PRN PRN Reason: Vomiting Last Admin: 09/06/20 08:36 Dose: 1.5 mg Documented by: Discontinued Medications Enoxaparin Sodium (Lovenox) 40 mg SUBCUT Q24H [facility] Hydromorphone HCl (Dilaudid) 0.5 mg IVPUSH ONETIME ONE Stop: 09/05/20 14:16 Last Admin: 09/05/20 14:27 Dose: 0.5 mg Documented by: Hydromorphone HCl (Dilaudid) 0.5 mg IVPUSH ONETIME ONE Stop: 09/05/20 14:47 Last Admin: 09/05/20 14:56 Dose: 0.5 mg Documented by: Hydromorphone HCl (Dilaudid) 0.5 mg IVPUSH Q2H PRN PRN Reason: Pain (severe 7-10) Last Admin: 09/06/20 05:38 Dose: 0.5 mg Documented by: Hydromorphone HCl (Dilaudid) 0.5 mg IVPUSH Q2H PRN PRN Reason: Pain (severe 7-10) Sodium Chloride (Normal Saline) 1,000 mls @ 999 mls/hr IV STAT ONE Stop: 09/05/20 15:27 Last Admin: 09/05/20 14:56 Dose: 999 mls/hr Documented by: Lactated Ringer's (Ringers, Lactated) 1,000 mls @ 125 mls/hr IV ASDIRECTED [facility] Stop: 09/06/20 21:30 Last Admin: 09/06/20 13:41 Dose: 125 mls/hr Documented by: Ketorolac Tromethamine (Toradol) 30 mg IVPUSH ONETIME ONE Stop: 09/05/20 19:03 Last Admin: 09/05/20 19:25 Dose: 30 mg Documented by: Ondansetron HCl (Zofran) 4 mg IVPUSH ONETIME ONE Stop: 09/05/20 14:16 Last Admin: 09/05/20 14:27 Dose: 4 mg Documented by: Ondansetron HCl (Zofran) 4 mg IVPUSH ONETIME ONE Stop: 09/05/20 15:53 Last Admin: 09/05/20 16:20 Dose: 4 mg Documented by: - Exam Quality Assessment: Reports: DVT Prophylaxis. Denies: Supplemental Oxygen, Urine Catheter General: Reports: Alert, Oriented, Cooperative, No Acute Distress Lungs: Reports: Clear to Auscultation, Normal Respiratory Effort Cardiovascular: Reports: Regular Rate, Regular Rhythm GI/Abdominal Exam: Normal Bowel Sounds, Soft, Non-Tender Extremities: Pedal Edema (Increased swelling to right lower foot, pulses present no loss of sensation and warm to touch cap refill less than 3 seconds) Skin: Reports: Warm, Dry Wound/Incisions: Reports: Healing Well. Denies: Erythema Neurological: Reports: No New Focal Deficit Psy/Mental Status: Reports: Alert, Normal Affect, Normal Mood
[2020-09-07] MEDS: Enoxaparin 40 MG/0.4 ML Syringe SUBCUT SCH (08:44)
--- NOTE | 2020-09-07 09:07 | PCM.CONS ---
H&P History of Present Illness - General Date of Service: 09/06/20 Admit Problem/Dx: Admission Diagnosis/Problem Admission Diagnosis/Problem Pain Source of Information: Patient, Provider, RN History Limitations: Reports: No Limitations - History of Present Illness Onset of Symptoms: Reports: Sudden Symptom Onset Date: 09/05/20 Duration of Symptoms: Reports: Hour(s): Location: Reports: Lower Extremity, Right Quality: Reports: Ache, Throbbing Severity: Moderate Improves with: Reports: Immobilization Worsens with: Reports: Movement Associated Symptoms: Reports: No Other Symptoms right leg Pain Score (Numeric/FACES): 5 - Related Data Allergies/Adverse Reactions: Allergies Allergy/AdvReac Type Severity Reaction Status Date / Time benzoyl peroxide Allergy Rash Verified 09/05/20 22:29 Home Medications: Home Meds Acetaminophen [Tylenol] 650 mg PO Q4H PRN tablet 09/07/20 [Rx] Ondansetron [Zofran ODT] 4 mg PO Q6H PRN #15 tab.dis 09/07/20 [Rx] cephALEXin [Keflex] 500 mg PO BID #8 cap 09/07/20 [Rx] oxyCODONE 5 mg PO Q4H PRN #20 tablet 09/07/20 [Rx] Past Medical History - Past Health History Medical/Surgical History: Denies Medical/Surgical History HEENT History: Reports: Sinusitis Cardiovascular History: Reports: Hypertension (No RX currently) Respiratory History: Reports: None Gastrointestinal History: Reports: Other (See Below) (PONV) Genitourinary History: Reports: None Musculoskeletal History: Reports: None Neurological History: Reports: None Psychiatric History: Reports: None Endocrine/Metabolic History: Reports: None Hematologic History: Reports: None Immunologic History: Reports: None Oncologic (Cancer) History: Reports: None Dermatologic History: Reports: None - Infectious Disease History Infectious Disease History: Reports: Chicken Pox - Past Surgical History HEENT Surgical History: Reports: Other (See Below) Other HEENT Surgeries/Procedures: nasal polyps removal Social & Family History - Family History Family Medical History: No Pertinent Family History - Tobacco Use Tobacco Use Status *Q: Never Tobacco User - Caffeine Use Caffeine Use: Reports: None - Recreational Drug Use Recreational Drug Use: No Drug Use in Last 12 Months: No H&P Review of Systems - Review of Systems: Review Of Systems: See Below General: Reports: No Symptoms HEENT: Reports: No Symptoms Pulmonary: Reports: No Symptoms Cardiovascular: Reports: No Symptoms Gastrointestinal: Reports: No Symptoms Genitourinary: Reports: No Symptoms Musculoskeletal: Reports: Joint Pain, Muscle Pain, Muscle Stiffness Skin: Reports: No Symptoms Psychiatric: Reports: No Symptoms Neurological: Reports: No Symptoms Hematologic/Lymphatic: Reports: No Symptoms Immunologic: Reports: No Symptoms Exam - Exam Exam: See Below - Vital Signs Vital Signs: Last Vital Signs Temp 36.2 C 09/07/20 07:09 Pulse 67 09/07/20 07:09 Resp 16 09/07/20 07:09 BP 122/79 09/07/20 07:09 Pulse Ox 98 09/07/20 07:09 Weight: 65.771 kg - Exam General: Alert, Oriented, Cooperative, Moderate Distress HEENT: Conjunctiva Clear, Mucosa Moist & [place], Pupils Equal, Pupils Reactive Neck: Supple, Trachea Midline Lungs: Normal Respiratory Effort GI/Abdominal Exam: No Distention Extremities: Joint Swelling, Leg Pain, Limited Range of Motion Peripheral Pulses: 2+: Dorsalis Pedis (L), Dorsalis Pedis (R) Skin: Warm, Dry, Intact Psychiatric: Alert, Normal Affect, Normal Mood Physical Exam Comments:: Right lower extremity: The splint is on the right lower leg. Distal motor and sensory examination is grossly intact. She has good sensation. Capillary refill time is less than 2 seconds. There is no tenderness to palpation around the knee or distal thigh. - Patient Data Lab Results Last 24 hrs: Laboratory Results - last 24 hr 09/07/20 09/07/20 Range/Units 04:44 04:44 WBC 8.77 (4.0-11.0) K/uL RBC 3.75 L (4.30-5.90) M/uL Hgb 11.3 L (12.0-16.0) g/dL Hct 35.4 L (36.0-46.0) % MCV 94.4 (80.0-98.0) fL MCH 30.1 (27.0-32.0) pg MCHC 31.9 (31.0-37.0) g/dL RDW Std Deviation 45.3 (28.0-62.0) fl RDW Coeff of Jose 13 (11.0-15.0) % Plt Count 157 (150-400) K/uL MPV 10.70 (7.40-12.00) fL Neut % (Auto) 73.7 (48.0-80.0) % Lymph % (Auto) 13.3 L (16.0-40.0) % [place] % (Auto) 12.3 (0.0-15.0) % Eos % (Auto) 0.2 (0.0-7.0) % Baso % (Auto) 0.5 (0.0-1.5) % Neut # (Auto) 6.5 H (1.4-5.7) K/uL Lymph # (Auto) 1.2 (0.6-2.4) K/uL [place] # (Auto) 1.1 H (0.0-0.8) K/uL Eos # (Auto) 0.0 (0.0-0.7) K/uL Baso # (Auto) 0.0 (0.0-0.1) K/uL Nucleated RBC % 0.0 /100WBC Nucleated RBCs # 0 K/uL Sodium 140 (136-145) mmol/L Potassium 4.0 (3.5-5.1) mmol/L Chloride 107 (98-107) mmol/L Carbon Dioxide 25.8 (21.0-32.0) mmol/L BUN 12 (7.0-18.0) mg/dL Creatinine 1.0 (0.6-1.0) mg/dL Est Cr Clr Drug Dosing 61.99 mL/min Estimated GFR (MDRD) > 60.0 ml/min Glucose 104 (74-106) mg/dL Calcium 8.4 L (8.5-10.1) mg/dL Magnesium 1.8 (1.8-2.4) mg/dL Result Diagrams: 09/07/20 04:44 09/07/20 04:44 Lakhwinder Results Last 24 hrs: Microbiology 09/06/20 00:10 Urine Culture - Final Urine, Clean Catch MIXED MERRITT >100,000 CFU/ML Sepsis Event Note - Evaluation Sepsis Screening Result: No Definite Risk - Focused Exam Vital Signs: Vital Signs Temp Pulse Resp BP Pulse Ox 09/07/20 07:09 36.2 C 67 16 122/79 98 09/07/20 05:00 36.2 C 60 16 138/74 98 09/07/20 00:00 36.2 C 67 17 130/74 99 Consult PN Assessment/Plan POD#: 0 Procedures: Procedures ASSAY THYROID STIM HORMONE (01/22/17) CHEST X-RAY 2VW FRONTAL&LATL (03/16/15) CHORIONIC GONADOTROPIN ASSAY (07/20/17) COMPLETE CBC AUTOMATED (03/16/15) COMPLETE CBC W/AUTO DIFF WBC (07/20/17) COMPREHEN METABOLIC PANEL (07/20/17) CT MAXILLOFACIAL W/O DYE (11/04/14) CULTURE SCREEN ONLY (08/07/16) EMERGENCY DEPT VISIT (12/02/17) HEP B SURFACE ANTIBODY (02/16/18) HEPATITIS C AB TEST (02/16/18) HIV-1 AG W/HIV-1 & -2 AB AG IA (02/16/18) HPV HIGH-RISK TYPES (01/22/17) HYDRATE IV INFUSION ADD-ON (07/20/17) LIPID PANEL (01/22/17) METABOLIC PANEL TOTAL CA (03/16/15) PROTHROMBIN TIME (03/16/15) ROUTINE VENIPUNCTURE (02/16/18) SARS-COV-2 COVID-19 AMP PRB (06/30/20) STREP A AG IA (08/07/16) THER/PROPH/DIAG INJ IV PUSH (07/20/17) THER/PROPH/DIAG INJ SC/IM (12/02/17) THROMBOPLASTIN TIME PARTIAL (03/16/15) TX/PRO/DX INJ NEW DRUG ADDON (07/20/17) TX/PRO/DX INJ SAME DRUG GRAIN SAMPLER (07/20/17) (1) Tibia/fibula fracture, shaft SNOMED Code(s): 623736018 Code(s): S82.209A - UNSP FRACTURE OF SHAFT OF UNSP TIBIA, INIT FOR CLOS FX; S82.409A - UNSP FRACTURE OF SHAFT OF UNSP FIBULA, INIT FOR CLOS FX Current Visit: Yes Qualifiers: Encounter type: initial encounter Fracture type: closed Laterality: right Qualified Code(s): S82.201A - Unspecified fracture of shaft of right tibia, initial encounter for closed fracture; S82.401A - Unspecified fracture of shaft of right fibula, initial encounter for closed fracture Problem List Initiated/Reviewed/Updated: Yes Plan: Plan: I advised the patient that we would not want to do surgery right away bassam use we need the swelling to go down. I've advised her that when she goes home to keep her leg up and elevated position above her heart and ice it about every 20 minutes. She is not to take any nonsteroidal anti-inflammatories in preparation for surgery. I did advise that we would need to do a distal medial and distal fibular plate. She'll be nonweightbearing for approximately 9 weeks. We'll follow her up in clinic. We'll plan to go ahead with surgery on Sunday. I did advise her that there is a possibility that if there is too much swelling we would have to postpone.
[2020-09-07] MEDS: Ondansetron 4 MG/2 ML SDV IVPUSH PRN ×2 (11:12)
== END 2020-09-07 12:40 | disposition home or self-care (01) ==
LOC: MW.ED 14:08 → MW.MS 19:36
PROVIDERS: ADMIT Student in an Organized Health Care Education/Training Program; ATTEND Student in an Organized Health Care Education/Training Program
DX: S82.301A Unspecified fracture of lower end of right tibia, initial encounter for closed fracture (principal); S82.831A Other fracture of upper and lower end of right fibula, initial encounter for closed fracture; I10 Essential (primary) hypertension; G43.909 Migraine, unspecified, not intractable, without status migrainosus; N39.0 Urinary tract infection, site not specified; R11.2 Nausea with vomiting, unspecified; Z79.899 Other long term (current) drug therapy; Z01.812 Encounter for preprocedural laboratory examination; Z20.822 Contact with and (suspected) exposure to COVID-19; Z88.8 Allergy status to other drugs, medicaments and biological substances; V00.848A Other accident with standing micro-mobility pedestrian conveyance, initial encounter
CPT/HCPCS: 0240U; 29505; 36415; 71045; 73590; 80048; 80053; 81001; 83735; 84100; 84484; 84703; 85025; 87086; 87635; 93005; 96365; 96372; 96375; 96376; 97161; 99284; A9270; G0378; J0696; J1170; J1650; J1885; J2270; J2405; J7030; J7120; 93010; 96374; 99285; U0002

== ENCOUNTER 2020-09-10 10:02 | Day surgery (SDC) | payer OTHER ==
[~2020-09-10 10:02] MED LIST: Bupivacaine 0.5% 30 ML SDV ONE; Lactated Ringers 1,000 ML IV SCH; ceFAZolin 2 GM in Premix Bag 1 BAG IV SCH
[2020-09-10] MEDS ORDERED: Midazolam 1 MG/ML 2 ML SDV ONE (10:08)
[2020-09-10] MEDS ORDERED: Propofol 200 MG/20 ML SDV ONE (10:08)
[2020-09-10] MEDS ORDERED: fentaNYL 250 MCG/5 ML SDV ONE ×2 (10:08→12:05)
[2020-09-10] MEDS ORDERED: Scopolamine 1.5 MG Transdermal Patch TRDERM PRN (10:16)
--- NOTE | 2020-09-10 10:28 | PCM.PREANE ---
Preanesthetic Assessment - Anesthesia/Transfusion/Family Hx Anesthesia History: Prior Anesthesia Without Reaction Family History of Anesthesia Reaction: No Transfusion History: No Prior Transfusion(s) Intubation History: Unknown - Review of Systems General: No Symptoms Pulmonary: No Symptoms Cardiovascular: No Symptoms Gastrointestinal: No Symptoms Neurological: No Symptoms Other: Reports: None - Physical Assessment Height: 5 ft 4 in Weight: 65.771 kg ASA Class: 2 Mental Status: Alert & Oriented x3 Airway Class: Mallampati = 1 Dentition: Reports: Normal Dentition Thyro-Mental Finger Breadths: 3 Mouth Opening Finger Breadths: 3 (big mouth) ROM/Head Extension: Full Lungs: Clear to Auscultation, Normal Respiratory Effort Cardiovascular: Regular Rate, Regular Rhythm - Allergies Allergies/Adverse Reactions: Allergies Allergy/AdvReac Type Severity Reaction Status Date / Time benzoyl peroxide Allergy Rash/swelli Verified 09/07/20 10:19 ng - Blood Blood Available: No - Anesthesia Plan Pre-Op Medication Ordered: None - Acknowledgements Anesthesia Type Planned: General Anesthesia Pt an Appropriate Candidate for the Planned Anesthesia: Yes Alternatives and Risks of Anesthesia Discussed w Pt/Guardian: Yes Pt/Guardian Understands and Agrees with Anesthesia Plan: Yes PreAnesthesia Questionnaire - Past Health History Medical/Surgical History: Denies Medical/Surgical History HEENT History: Reports: Allergic Rhinitis, Sinusitis Other HEENT History: wears glasses/contacts, 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" Cardiovascular History: Reports: Hypertension Respiratory History: Reports: None Gastrointestinal History: Reports: None, Other (See Below) Genitourinary History: Reports: None [employer] History: Reports: Musculoskeletal History: Other Musculoskeletal History: presently has fx right tib/fib Neurological History: Reports: Migraines Psychiatric History: Reports: None Endocrine/Metabolic History: Reports: None Hematologic History: Reports: None Immunologic History: Reports: None Oncologic (Cancer) History: Reports: None Dermatologic History: Reports: None - Infectious Disease History Infectious Disease History: Reports: Chicken Pox - Past Surgical History Head Surgeries/Procedures: Reports: None HEENT Surgical History: Reports: Naso-Sinus Surgery, Other (See Below) Cardiovascular Surgical History: Reports: None Respiratory Surgical History: Reports: None GI Surgical History: Reports: None Female Surgical History: Reports: None Endocrine Surgical History: Reports: None Neurological Surgical History: Reports: None Oncologic Surgical History: Reports: None Dermatological Surgical History: Reports: None - SUBSTANCE USE Tobacco Use Status *Q: Never Tobacco User - HOME MEDS Home Medications: Home Meds Acetaminophen [Tylenol] 650 mg PO Q4H PRN tablet 09/07/20 [Rx] Calcium Carbonate [Calcium] 1 tab PO DAILY 09/07/20 [History] Cetirizine [ZyrTEC] 1 tab PO DAILY 09/07/20 [History] Magnesium Oxide [Magnesium] 1 tab PO DAILY 09/07/20 [History] Multivitamin 1 tab PO DAILY 09/07/20 [History] Ondansetron [Zofran ODT] 4 mg PO Q6H PRN #15 tab.dis 09/07/20 [Rx] cephALEXin [Keflex] 500 mg PO BID #8 cap 09/07/20 [Rx] oxyCODONE 5 mg PO Q4H PRN #20 tablet 09/07/20 [Rx] - CURRENT (IN HOUSE) MEDS Current Meds: Current Medications Lactated Ringer's (Ringers, Lactated) 1,000 mls @ 100 mls/hr IV ASDIRECTED MICHEL Cefazolin Sodium/Dextrose 2 gm (/ Premix) 50 mls @ 100 mls/hr IV ONCALL MICHEL Scopolamine (Transderm-Scop) 1.5 mg TRDERM Q72H PRN PRN Reason: Nausea Discontinued Medications Bupivacaine HCl (Marcaine 0.5%) Confirm Administered Dose 30 ml .ROUTE .STK-MED ONE Stop: 09/10/20 07:47 Fentanyl (Sublimaze) Confirm Administered Dose 250 mcg .ROUTE .STK-MED ONE Stop: 09/10/20 10:09 Midazolam HCl (Versed 1 Mg/Ml) Confirm Administered Dose 2 mg .ROUTE .STK-MED ONE Stop: 09/10/20 10:09 Propofol (Diprivan 20 Ml) Confirm Administered Dose 200 mg .ROUTE .STK-MED ONE Stop: 09/10/20 10:09
[2020-09-10] MEDS ORDERED: Dexamethasone 4 MG/ML 5 ML MDV ONE (10:30)
[2020-09-10] MEDS ORDERED: Ondansetron 4 MG/2 ML SDV ONE (10:30)
[2020-09-10] MEDS ORDERED: ceFAZolin 1 GM Vial ONE (11:12)
[2020-09-10] MEDS ORDERED: diphenhydrAMINE 50 MG/ML SDV ONE (11:43)
[2020-09-10] MEDS ORDERED: Acetaminophen 1,000 MG in Premix Bag 1 BAG IV PRN ×2 (12:11→12:13)
[2020-09-10] MEDS ORDERED: fentaNYL 100 MCG/2 ML SDV IVPUSH PRN (12:13)
[2020-09-10] MEDS ORDERED: Ketorolac 30 MG/ML SDV ONE (12:27)
[2020-09-10] MEDS ORDERED: Bupivacaine 25%/EPINEPHrine/PF 30 ML ONE (12:50)
[2020-09-10] MEDS ORDERED: HYDROmorphone 2 MG/ML Syringe IVPUSH ONE (13:21)
[2020-09-10] MEDS ORDERED: HYDROmorphone 2 MG/ML Syringe ONE (13:22)
--- NOTE | 2020-09-10 13:26 | PCM.OPNOTE ---
- General Post-Op/Procedure Note Date of Surgery/Procedure: 09/10/20 Operative Procedure(s): orif tibia and fibula shaft, right Pre Op Diagnosis: right fibula and tibial shaft fracture, closed Post-Op Diagnosis: Same Anesthesia Technique: General LMA Primary Surgeon: Karlo Case Economic Specialist: Kim Calle EBL in mLs: 75 Complications: None Condition: Good
[2020-09-10] MEDS: fentaNYL 100 MCG/2 ML SDV IVPUSH PRN ×2 (13:43→13:48)
[2020-09-10] MEDS: HYDROmorphone 2 MG/ML Syringe IVPUSH PRN ×2 (14:39→15:21)
--- NOTE | 2020-09-10 14:51 | PCM.POSTAN ---
POST ANESTHESIA ASSESSMENT - MENTAL STATUS Mental Status: Alert, Oriented - VITAL SIGNS Vital Signs: Last Vital Signs Temp 36.7 C 09/10/20 14:20 Pulse 74 09/10/20 14:20 Resp 14 09/10/20 14:20 BP 158/87 H 09/10/20 14:20 Pulse Ox 95 09/10/20 14:20 - RESPIRATORY Respiratory Status: Respiratory Rate WNL, Airway Patent, O2 Saturation Stable - CARDIOVASCULAR CV Status: Pulse Rate WNL, Blood Pressure Stable - GASTROINTESTINAL GI Status: No Symptoms - PAIN Pain Score: 8 - POST OP HYDRATION Hydration Status: Adequate & Stable - OBSERVATIONS Free Text/Narrative:: No anesthesia problems
[2020-09-10] MEDS ORDERED: HYDROmorphone 2 MG/ML Syringe IVPUSH PRN (15:19)
--- NOTE | 2020-09-10 18:48 | OR ---
SURGEON: Karlo Case DATE OF PROCEDURE: 09/10/2020 PREOPERATIVE DIAGNOSIS: Right tibia and fibular shaft fracture, closed. POSTOPERATIVE DIAGNOSIS: Right tibia and fibular shaft fracture, closed. PROCEDURE: Open reduction and internal fixation, right tibial shaft and right fibular shaft. PRIMARY SURGEON: Karlo Case DO INSTRUCTIONAL DESIGNER: LYDIA Garcia ROLE OF INSTRUCTIONAL DESIGNER: Nurse practitioner, LYDIA Garcia, played an essential role in assisting in this case, helping to position the patient, retract structures as needed, as well as suturing and cutting sutures as indicated. Her presence improved patient's safety and decreased operative time. FLUIDS: Lactated Ringer's solution. ANESTHESIA: General LMA. COMPLICATIONS: None. SPECIMEN: None. DISCHARGE DISPOSITION: Stable to PACU. HISTORY AND INDICATIONS FOR THE PROCEDURE: The patient was seen preoperatively by myself on the floor. On Sunday of this week, she had fallen off a hover board. She was seen at the emergency department where the above-mentioned diagnosis was confirmed on radiographs. Risks and goals of the procedure were explained to the patient. Informed consent was obtained. DETAILS OF PROCEDURE: The patient was seen preoperatively by myself and the Anesthesia staff in the preoperative holding area where the operative site was marked. She was brought to the operative suite by Anesthesia staff where general anesthesia was administered. All extremities were found to be well padded. A well-padded tourniquet was placed on the right thigh, but was not inflated during the procedure. The right lower extremity was then prepped and draped in a sterile manner. Time-out was called identifying the correct patient, the correct procedure, the correct site, and that antibiotics were given within appropriate period of time. A lateral incision was made after using a sterilely draped fluoroscopy unit to identify the fracture site of the fibula. Bleeding was controlled with Bovie electrocautery. I used Metzenbaum to get down to the bone and then used a ennis elevator to spread the tissues bluntly and then used a ennis elevator to expose the bone. The proximal fragment was medial and overlapping by approximately 2 cm. It took quite a bit of time and effort to get this reduced. I used a K- wire for initial reduction. I then used a 6-hole plate and did two distal screws and then used one of the proximal holes to use that for fracture reduction. I then drilled and filled the rest of the screws and confirmed good placement on fluoroscopy. We then focused on her medial side. I used the fluoroscopy unit and held the plate up to make sure that we had the proper length. I made a proximal incision and then a distal incision. I then opened my proximal incision and then used one of the [place] Freers to go along the shaft. I then applied my plate through that distal incision and then drilled one screw to hold it in place. I then made my distal incision and controlled bleeding with Bovie electrocautery. The plate was too posterior, so I backed off my screw and then eventually took it out and then readjusted my plate. I actually took it through the proximal incision and then put it through the distal incision because I believed that we were having some difficulty of the plate going into the fracture site. After confirming good placement on fluoroscopy, I drilled one distal screw and one proximal screw. I then took AP and lateral radiographs. At this point, it was evident there was enough comminution and that we had an apex posterior fracture that was comminuted that I was going to have to open this up, so I connected my incisions and then exposed the bone and then used the plate with lobster claw forceps and reduced the fracture. I placed two screws distal to the fracture site and then used a proximal screw to reduce it and compress it. This did it very nicely. I then put in two more locking screws distally in the plate and then filled the rest of the proximal screws in the plate with non-lockers. I did not fill the proximal most hole. It was posterior enough that it was just hitting cortex. I had more than enough screws for adequate fracture reduction and fixation with good alignment. I then took my final films and then copiously irrigated with saline infused with Betadine irrigation, closing the medial incision first with 0 Stratafix, then the lateral incision with 0 Stratafix. I closed both of them with helga. We applied Tegaderm over one of the fracture blisters and then applied Betadine-soaked Adaptic over both incisions followed by fluffs, Webril, and an Jason wrap. We then placed the right lower extremity into a boot. The patient was then taken to the PACU in stable condition. [id number] / MODL /[id number]
--- NOTE | 2020-09-10 20:18 | PCM48HPAN ---
Post Anesthesia Note - EVALUATION WITHIN 48HRS OF ANESTHETIC Vital Signs in Normal Range: Yes Patient Participated in Evaluation: Yes Respiratory Function Stable: Yes Airway Patent: Yes Cardiovascular Function Stable: Yes Hydration Status Stable: Yes Pain Control Satisfactory: Yes Nausea and Vomiting Control Satisfactory: Yes Mental Status Recovered: Yes Vital Signs: Last Vital Signs Temp 36.7 C 09/10/20 14:20 Pulse 86 09/10/20 17:00 Resp 16 09/10/20 17:00 BP 148/82 H 09/10/20 17:00 Pulse Ox 98 09/10/20 17:00 - COMMENTS/OBSERVATIONS Free Text/Narrative:: No anesthesia concerns.
--- NOTE | 2020-09-13 14:28 | CR ---
INDICATION: ORIF right tibia and fibula TECHNIQUE: Intraoperative C-arm fluoroscopy. IMPRESSION: Intraoperative C-arm fluoroscopy was provided. Fluoroscopy time greater than 1 hour. Three images were captured. Dictated by Abimael Mina MD @ Sep 13 2020 2:25PM Signed by Dr. Abimael Mina @ Sep 13 2020 2:26PM
== END 2020-09-10 17:16 | disposition home or self-care (01) ==
LOC: MW.SDS 10:02
PROVIDERS: ATTEND Orthopaedic Surgery
DX: S82.201A Unspecified fracture of shaft of right tibia, initial encounter for closed fracture (principal); S82.401A Unspecified fracture of shaft of right fibula, initial encounter for closed fracture; I10 Essential (primary) hypertension; G43.909 Migraine, unspecified, not intractable, without status migrainosus; V00.848A Other accident with standing micro-mobility pedestrian conveyance, initial encounter; Z88.8 Allergy status to other drugs, medicaments and biological substances; Z79.899 Other long term (current) drug therapy
CPT/HCPCS: 27758; 81025; A9270; C1713; C1776; J0131; J0690; J1100; J1170; J1200; J1885; J2001; J2250; J2405; J2704; J3010; J7120; 01480; J3490

== ENCOUNTER 2020-10-15 10:48 | Day surgery (SDC) | payer OTHER ==
[~2020-10-15 10:48] MED LIST changes: -Bupivacaine 0.5% 30 ML SDV ONE
[2020-10-15] MEDS ORDERED: Vancomycin 1 GM SDV ONE (11:35)
[2020-10-15] MEDS ORDERED: Propofol 200 MG/20 ML SDV ONE (11:37)
[2020-10-15] MEDS ORDERED: Ketorolac 30 MG/ML SDV ONE (11:37)
[2020-10-15] MEDS ORDERED: Ondansetron 4 MG/2 ML SDV ONE (11:37)
[2020-10-15] MEDS ORDERED: Midazolam 1 MG/ML 2 ML SDV ONE (11:38)
[2020-10-15] MEDS ORDERED: fentaNYL 100 MCG/2 ML SDV ONE (11:38)
[2020-10-15] MEDS ORDERED: Sodium Chloride 0.9% 20 ML ONE (12:02)
[2020-10-15] MEDS ORDERED: ceFAZolin 1 GM Vial ONE (12:02)
[2020-10-15] MEDS ORDERED: Acetaminophen 1,000 MG in Premix Bag 1 BAG IV PRN (12:04)
--- NOTE | 2020-10-15 12:08 | PCM.PREANE ---
Preanesthetic Assessment - Anesthesia/Transfusion/Family Hx Anesthesia History: Prior Anesthesia Without Reaction Type of Anesthesia Reaction: Excessive Nausea/Vomiting Family History of Anesthesia Reaction: No Transfusion History: No Prior Transfusion(s) Intubation History: Unknown - Review of Systems General: No Symptoms Pulmonary: No Symptoms Cardiovascular: No Symptoms Gastrointestinal: No Symptoms Neurological: No Symptoms Other: Reports: None - Physical Assessment NPO Status Date: 10/14/20 Height: 5 ft 4 in Weight: 66.678 kg ASA Class: 2 Mental Status: Alert & Oriented x3 Airway Class: Mallampati = 2 Dentition: Reports: Normal Dentition ROM/Head Extension: Full Lungs: Clear to Auscultation, Normal Respiratory Effort Cardiovascular: Regular Rate, Regular Rhythm - Lab Values: Laboratory Last Values Urine HCG, Qual NEGATIVE (NEGATIVE) 10/15/20 10:20 SARS-CoV-2 RNA (MAGY) NEGATIVE (NEGATIVE) 10/15/20 10:00 - Allergies Allergies/Adverse Reactions: Allergies Allergy/AdvReac Type Severity Reaction Status Date / Time benzoyl peroxide Allergy Rash/swelli Verified 10/14/20 15:27 ng - Blood Blood Available: No - Anesthesia Plan Pre-Op Medication Ordered: None - Acknowledgements Anesthesia Type Planned: General Anesthesia Pt an Appropriate Candidate for the Planned Anesthesia: Yes Alternatives and Risks of Anesthesia Discussed w Pt/Guardian: Yes Pt/Guardian Understands and Agrees with Anesthesia Plan: Yes PreAnesthesia Questionnaire - Past Health History Medical/Surgical History: Denies Medical/Surgical History HEENT History: Reports: Allergic Rhinitis, Sinusitis Other HEENT History: wears glasses/contacts, 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" Cardiovascular History: Reports: Hypertension Respiratory History: Reports: None Gastrointestinal History: Reports: None, Other (See Below) Genitourinary History: Reports: None 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: Musculoskeletal History: Other Musculoskeletal History: presently has fx right tib/fib Neurological History: Reports: Migraines Psychiatric History: Reports: None Endocrine/Metabolic History: Reports: None Hematologic History: Reports: None Immunologic History: Reports: None Oncologic (Cancer) History: Reports: None Dermatologic History: Reports: None - Infectious Disease History Infectious Disease History: Reports: Chicken Pox - Past Surgical History Head Surgeries/Procedures: Reports: None HEENT Surgical History: Reports: Naso-Sinus Surgery, Other (See Below) Other HEENT Surgeries/Procedures: nasal polyps removal Cardiovascular Surgical History: Reports: None Respiratory Surgical History: Reports: None GI Surgical History: Reports: None Female Surgical History: Reports: None Endocrine Surgical History: Reports: None Neurological Surgical History: Reports: None Musculoskeletal Surgical History: Reports: ORIF Other Musculoskeletal Surgeries/Procedures:: ORIF rt ankle fx 09/10/20 Oncologic Surgical History: Reports: None Dermatological Surgical History: Reports: None - SUBSTANCE USE Tobacco Use Status *Q: Never Tobacco User - HOME MEDS Home Medications: Home Meds Acetaminophen [Tylenol] 650 mg PO Q4H PRN tablet 09/07/20 [Rx] Calcium Carbonate [Calcium] 1 tab PO DAILY 09/07/20 [History] Cetirizine [ZyrTEC] 1 tab PO DAILY 09/07/20 [History] Magnesium Oxide [Magnesium] 1 tab PO DAILY 09/07/20 [History] Multivitamin 1 tab PO DAILY 09/07/20 [History] Ibuprofen 800 mg PO Q8H #30 tablet 09/10/20 [Rx] Ondansetron [Zofran] 8 mg PO Q6H PRN #15 tab 09/10/20 [Rx] - CURRENT (IN HOUSE) MEDS Current Meds: Current Medications Fentanyl (Sublimaze) 50 mcg IVPUSH Q5M PRN PRN Reason: Pain Lactated Ringer's (Ringers, Lactated) 1,000 mls @ 100 mls/hr IV ASDIRECTED [facility] Cefazolin Sodium/Dextrose 2 gm (/ Premix) 50 mls @ 100 mls/hr IV SEECOMMENT [facility] Acetaminophen 1,000 mg/ Premix 100 mls @ 400 mls/hr IV Q6H PRN PRN Reason: Pain Discontinued Medications Cefazolin Sodium (Ancef) Confirm Administered Dose 2 gm .ROUTE .STK-MED ONE Stop: 10/15/20 12:03 Fentanyl (Sublimaze) Confirm Administered Dose 100 mcg .ROUTE .STK-MED ONE Stop: 10/15/20 11:39 Sodium Chloride (Normal Saline) Confirm Administered Dose 20 mls @ as directed .ROUTE .STK-MED ONE Stop: 10/15/20 12:03 Ketorolac Tromethamine (Toradol) Confirm Administered Dose 30 mg .ROUTE .STK-MED ONE Stop: 10/15/20 11:38 Lidocaine HCl (Xylocaine-Mpf 1%) Confirm Administered Dose 5 ml .ROUTE .STK-MED ONE Stop: 10/15/20 11:40 Midazolam HCl (Versed 1 Mg/Ml) Confirm Administered Dose 2 mg .ROUTE .STK-MED ONE Stop: 10/15/20 11:39 Ondansetron HCl (Zofran) Confirm Administered Dose 4 mg .ROUTE .STK-MED ONE Stop: 10/15/20 11:38 Propofol (Diprivan 20 Ml) Confirm Administered Dose 200 mg .ROUTE .STK-MED ONE Stop: 10/15/20 11:38 Vancomycin HCl (Vancomycin) Confirm Administered Dose 1 gm .ROUTE .STK-MED ONE Stop: 10/15/20 11:36
[2020-10-15] MEDS ORDERED: Dexamethasone 4 MG/ML 5 ML MDV ONE (12:30)
[2020-10-15] MEDS ORDERED: Bupivacaine 0.5% 10 ML SDV ONE (12:47)
--- NOTE | 2020-10-15 13:30 | PCM.OPNOTE ---
- General Post-Op/Procedure Note Date of Surgery/Procedure: 10/15/20 Operative Procedure(s): irrigation and debridement right medial ankle Pre Op Diagnosis: right ankle suture abcess Post-Op Diagnosis: Same Anesthesia Technique: General LMA Primary Surgeon: Karlo Case Anesthesia Provider: Rodger Huizar Turning Lathe Tender: Kim Calle EBL in mLs: 25 Complications: None Condition: Good
[2020-10-15] MEDS: fentaNYL 100 MCG/2 ML SDV IVPUSH PRN ×2 (13:47→13:52)
[2020-10-15] MEDS ORDERED: Midazolam 1 MG/ML 2 ML SDV IVPUSH ONE (13:58)
--- NOTE | 2020-10-15 15:02 | PCM.POSTAN ---
POST ANESTHESIA ASSESSMENT - MENTAL STATUS Mental Status: Alert, Oriented - VITAL SIGNS Vital Signs: Last Vital Signs Temp 97.9 F 10/15/20 13:31 Pulse 47 L 10/15/20 14:11 Resp 11 L 10/15/20 14:11 BP 133/71 10/15/20 14:11 Pulse Ox 99 10/15/20 14:11 - RESPIRATORY Respiratory Status: Respiratory Rate WNL, Airway Patent, O2 Saturation Stable - CARDIOVASCULAR CV Status: Pulse Rate WNL, Blood Pressure Stable - GASTROINTESTINAL GI Status: No Symptoms - POST OP HYDRATION Hydration Status: Adequate & Stable
[2020-10-15] MEDS ORDERED: oxyCODONE 5 MG Tab PO ONE (15:06)
--- NOTE | 2020-10-15 15:10 | OR ---
SURGEON: Karlo Case DATE OF PROCEDURE: 10/15/2020 PREOPERATIVE DIAGNOSIS: Right ankle medial suture abscess. POSTOPERATIVE DIAGNOSIS: Right ankle medial suture abscess. PROCEDURE: Irrigation and debridement, right medial ankle. PRIMARY SURGEON: Karlo Case DO PERFORMANCE TEST CONSULTANT: LYDIA Garcia ROLE OF PERFORMANCE TEST CONSULTANT: Nurse practitioner, LYDIA Garcia, played an essential role in assisting in this case, helping to position the patient, retract structures as needed, as well as suturing and cutting sutures as indicated. Her presence improved patient's safety and decreased operative time. ANESTHESIA: Rodger Huizar CRNA, general anesthesia. FLUID: Lactated Ringer's solution. ESTIMATED BLOOD LOSS: 25 mL. COMPLICATIONS: None. SPECIMENS: Aerobic and anaerobic cultures, Gram stain, and subcutaneous tissue. DISCHARGE DISPOSITION: Stable to PACU. HISTORY AND INDICATIONS FOR THE PROCEDURE: The patient was seen yesterday in the clinic. Five weeks previous to this, she had had open reduction and internal fixation of distal third tibia and fibular shaft fractures. It was found that she had a suture abscess yesterday that was communicating with the plate. Risks and goals of the procedure were explained to the patient. Informed consent was obtained. DETAILS OF PROCEDURE: The patient was seen preoperatively by myself and the Anesthesia staff in the preoperative holding area where the operative site was marked. She was brought to the operative suite by Anesthesia staff where general anesthesia was administered. The right lower extremity was prepped and draped in a sterile manner. Time-out was called identifying the correct patient, the correct procedure, the correct site. Antibiotics were accidentally given at the beginning of the case rather than waiting for cultures. I ellipsed the distal portion of the incision in order to take away any infected tissue and then removed any soft tissue down to the plate and then used a [place] to mobilize subcutaneously for closure. I then found two to three areas proximally where we had some eschar. I was concerned about a suture abscess there as well. I removed some suture from all these areas and did remove a small amount of skin as well. We then used 3 L of saline and pulse lavage to clean out the wound. After that had been done, we used a liter of Betadine infused irrigation and used the entirety of it to irrigate the wound. When I was using this through the middle portion, which we debrided, it communicated distally and proximally, so that is why we used the entire liter. I did not see any other purulent material exudating at that point. We then applied a gram of vancomycin subcutaneously in these wounds and then closed the proximal wounds with interrupted and horizontal mattress 2-0 nylon sutures. For the distal incision, I used horizontal mattress sutures, interrupted sutures, and then a continuous suture because this was under significant tension, however, did close quite nicely. After this had been accomplished, we then applied our local anesthetic, which was 20 mL of 0.5% Marcaine without epinephrine. I applied this more deeply and laterally so we did not have the anesthetic directly in the wound. We then placed a JOHN wound VAC and an Jason wrap. The patient was allowed to awaken from general anesthesia, taken to the PACU in stable condition. We are going to put her on Keflex 500 mg three times daily for antibiotic suppression until we get the cultures back, and we will follow her up in one week for wound VAC removal. [id number] / MODL /[id number]
--- NOTE | 2020-10-15 15:34 | PCM48HPAN ---
Post Anesthesia Note - EVALUATION WITHIN 48HRS OF ANESTHETIC Vital Signs in Normal Range: Yes Patient Participated in Evaluation: Yes Respiratory Function Stable: Yes Airway Patent: Yes Cardiovascular Function Stable: Yes Hydration Status Stable: Yes Pain Control Satisfactory: Yes Nausea and Vomiting Control Satisfactory: Yes Mental Status Recovered: Yes Vital Signs: Last Vital Signs Temp 97.9 F 10/15/20 13:31 Pulse 47 L 10/15/20 14:11 Resp 11 L 10/15/20 14:11 BP 133/71 10/15/20 14:11 Pulse Ox 99 10/15/20 14:11
== END 2020-10-15 16:30 | disposition home or self-care (01) ==
LOC: MW.SDS 10:48
PROVIDERS: ATTEND Orthopaedic Surgery
DX: T81.89XA Other complications of procedures, not elsewhere classified, initial encounter (principal); I10 Essential (primary) hypertension; Z01.812 Encounter for preprocedural laboratory examination; Z20.822 Contact with and (suspected) exposure to COVID-19; Z88.8 Allergy status to other drugs, medicaments and biological substances; Z98.890 Other specified postprocedural states
CPT/HCPCS: 27610; 81025; 87070; 87075; 87077; 87186; 87205; 87635; 88304; A9270; J0131; J0690; J1100; J1885; J2250; J2405; J2704; J3010; J3370; J3490; J7120; U0002

== ENCOUNTER 2021-03-22 12:02 | Day surgery (SDC) | payer OTHER ==
--- NOTE | 2021-03-22 08:17 | PCM.PREANE ---
Preanesthetic Assessment - Anesthesia/Transfusion/Family Hx Anesthesia History: Prior Anesthesia Without Reaction Transfusion History: No Prior Transfusion(s) Intubation History: Unknown - Review of Systems General: No Symptoms Pulmonary: No Symptoms Cardiovascular: No Symptoms Gastrointestinal: No Symptoms Neurological: No Symptoms Other: Reports: None - Physical Assessment NPO Status Date: 03/22/21 NPO Status Time: 00:00 Height: 5 ft 4 in Weight: 147 lb ASA Class: 1 Mental Status: Alert & Oriented x3 Airway Class: Mallampati = 2 Dentition: Reports: Normal Dentition Thyro-Mental Finger Breadths: 3 Mouth Opening Finger Breadths: 3 ROM/Head Extension: Full Lungs: Clear to Auscultation, Normal Respiratory Effort Cardiovascular: Regular Rate, Regular Rhythm - Allergies Allergies/Adverse Reactions: Allergies Allergy/AdvReac Type Severity Reaction Status Date / Time benzoyl peroxide Allergy Rash/swelli Verified 03/16/21 08:44 ng vicyrl suture Allergy infection Uncoded 03/16/21 10:11 - Anesthesia Plan Pre-Op Medication Ordered: Other (Scopolamine) - Acknowledgements Anesthesia Type Planned: General Anesthesia Pt an Appropriate Candidate for the Planned Anesthesia: Yes Alternatives and Risks of Anesthesia Discussed w Pt/Guardian: Yes Pt/Guardian Understands and Agrees with Anesthesia Plan: Yes PreAnesthesia Questionnaire - Past Health History Medical/Surgical History: Denies Medical/Surgical History HEENT History: Reports: Allergic Rhinitis, Sinusitis Other HEENT History: wears glasses/contacts, 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" Cardiovascular History: Reports: Hypertension Respiratory History: Reports: None Gastrointestinal History: Reports: None Genitourinary History: Reports: None [employer] History: Reports: Musculoskeletal History: Reports: Fracture Neurological History: Reports: Migraines Psychiatric History: Reports: None Endocrine/Metabolic History: Reports: None Hematologic History: Reports: None Immunologic History: Reports: None Oncologic (Cancer) History: Reports: None Dermatologic History: Reports: None - Infectious Disease History Infectious Disease History: Reports: Chicken Pox - Past Surgical History Head Surgeries/Procedures: Reports: None HEENT Surgical History: Reports: Naso-Sinus Surgery, Other (See Below) Other HEENT Surgeries/Procedures: nasal polyps removal Cardiovascular Surgical History: Reports: None Respiratory Surgical History: Reports: None GI Surgical History: Reports: None Female Surgical History: Reports: None Endocrine Surgical History: Reports: None Neurological Surgical History: Reports: None Musculoskeletal Surgical History: Reports: ORIF Other Musculoskeletal Surgeries/Procedures:: ORIF rt ankle fx 09/10/20 Oncologic Surgical History: Reports: None Dermatological Surgical History: Reports: None - SUBSTANCE USE Tobacco Use Status *Q: Never Tobacco User - HOME MEDS Home Medications: Home Meds Calcium Carbonate [Calcium] 1 tab PO DAILY 09/07/20 [History] Cetirizine [ZyrTEC] 1 tab PO DAILY 09/07/20 [History] Magnesium Oxide [Magnesium] 1 tab PO DAILY 09/07/20 [History] Multivitamin 1 tab PO DAILY 09/07/20 [History] Acetaminophen [Tylenol Extra Strength] 2 tab PO ASDIRECTED PRN 03/16/21 [History] Ibuprofen 600 mg PO ASDIRECTED PRN 03/16/21 [History] Triamterene/Hydrochlorothiazid [Triamterene-HCTZ 37.5-25 MG] 0.5 tab PO DAILY 03/16/21 [History] - CURRENT (IN HOUSE) MEDS Current Meds: Current Medications Albuterol (Albuterol 0.083% 2.5 Mg/3 Ml Neb Soln) 2.5 mg NEB ONETIME PRN PRN Reason: Wheezing Droperidol (Droperidol 5 Mg/2 Ml Sdv) 0.625 mg IVPUSH ONETIME PRN PRN Reason: Nausea/Vomiting Fentanyl (Fentanyl 100 Mcg/2 Ml Sdv) 50 mcg IVPUSH Q5M PRN PRN Reason: Pain (mild 1-3) Hydromorphone HCl (Hydromorphone 2 Mg/Ml Syringe) 1 mg IVPUSH Q10M PRN PRN Reason: Pain (moderate 4-6) Lactated Ringer's (Ringers, Lactated) 1,000 mls @ 100 mls/hr IV ASDIRECTED [facility] Cefazolin Sodium/Dextrose 2 gm (/ Premix) 50 mls @ 100 mls/hr IV ONCALL [facility] Metoclopramide HCl (Metoclopramide 10 Mg/2 Ml Sdv) 10 mg IVPUSH ONETIME PRN PRN Reason: Nausea/Vomiting Morphine Sulfate (Morphine 2 Mg/Ml Syringe) 2 mg IVPUSH Q10M PRN PRN Reason: Pain (severe 7-10) Naloxone HCl (Naloxone 0.4 Mg/Ml Syringe) 0.1 mg IVPUSH ASDIRECTED PRN PRN Reason: Respiratory Depression Ondansetron HCl (Ondansetron 4 Mg/2 Ml Sdv) 4 mg IVPUSH ONETIME PRN PRN Reason: Nausea/Vomiting Discontinued Medications Epinephrine HCl (Epinephrine 1 Mg/Ml Sdv) Confirm Administered Dose 1 mg .ROUTE .STK-MED ONE Stop: 03/22/21 07:51 Lidocaine (Lidocaine 2% 5 Ml Sdv) Confirm Administered Dose 10 ml .ROUTE .STK- MED ONE Stop: 03/22/21 07:51 Ropivacaine (Ropivacaine 0.5% 5 Mg/Ml 30 Ml Sdv) Confirm Administered Dose 60 ml .ROUTE .STK-MED ONE Stop: 03/22/21 07:51
[~2021-03-22 12:02] MED LIST changes: +Albuterol 0.083% 2.5 MG/3 ML Neb Soln NEB PRN; +Bupivacaine 25%/EPINEPHrine/PF 30 ML ONE; +EPINEPHrine 1 MG/ML SDV ONE; +Lidocaine 2% 5 ML SDV ONE; +Metoclopramide 10 MG/2 ML SDV IVPUSH PRN; +Midazolam 1 MG/ML 2 ML SDV ONE; +Morphine 2 MG/ML SYRINGE IVPUSH PRN; +Naloxone 0.4 MG/ML Syringe IVPUSH PRN; +Ondansetron 4 MG/2 ML SDV IVPUSH PRN; +Ropivacaine 0.5% 5 MG/ML 30 ML SDV ONE; +Scopolamine 1.5 MG Transdermal Patch ONE; -ceFAZolin 2 GM in Premix Bag 1 BAG IV SCH; +fentaNYL 100 MCG/2 ML SDV IVPUSH PRN
[2021-03-22] MEDS ORDERED: Lidocaine 1% 20 ML MDV ONE (12:47)
[2021-03-22] MEDS ORDERED: Bupivacaine 0.25% 10 ML SDV ONE (12:58)
[2021-03-22] MEDS ORDERED: ceFAZolin 2 GM in Premix Bag 1 BAG IV SCH (13:00)
[2021-03-22] MEDS ORDERED: Dexamethasone 4 MG/ML 5 ML MDV ONE ×2 (13:02→14:10)
[2021-03-22] MEDS ORDERED: propofoL 50 ML ONE (13:33)
[2021-03-22] MEDS ORDERED: Ketamine 500 mg/10 ML MDV ONE (13:35)
[2021-03-22] MEDS ORDERED: Ketorolac 30 MG/ML SDV ONE (13:35)
[2021-03-22] MEDS ORDERED: Ondansetron 4 MG/2 ML SDV ONE (13:35)
--- NOTE | 2021-03-22 13:35 | PCM.SN.2 ---
- Free Text/Narrative Note: Anesthesia Start:1308 Anesthesia Stop: 1318 Preop peripheral nerve block for post-op analgesia in patient having ankle hardware removal. After obtaining informed consent from patient and performing a block time out, patient was placed in the semi-lateral position and using US guidance the common peroneal and tibial Nerves were identified. After local infiltration a 22g 6 inch adames needle was advanced under direct visualization and 20 cc 0.5% Naropin with 1:400K epi and 4mg decadron injected in 5 cc increments. No complications noted. Patient was then placed in supine position and under sterile conditions the saphenous Nerve identified in the adductor canal and using US guidanc the nerve was tracked distally. Following localization of the skin, a 22g 6 inch braum needle was advanced under direct visualization and 30cc 0.5% Naropin with 1:400k epi and 4mg decadron injected in 5 cc increments. Patient tolerated the procedure well. MD Constance Adamson CRNA
[2021-03-22] MEDS ORDERED: Propofol 200 MG/20 ML SDV ONE (14:58)
--- NOTE | 2021-03-22 15:23 | PCM.OPNOTE ---
- General Post-Op/Procedure Note Date of Surgery/Procedure: 03/22/21 Operative Procedure(s): Removal of deep implants from right tibia and fibula Findings: Both plates were firmly fixed to the bone with no sign of deep infection Pre Op Diagnosis: (1) Painful internal fixation of right tibia and fibula Post-Op Diagnosis: (1) Painful internal fixation of right tibia and fibula Anesthesia Technique: Moderate Sedation, Regional Block Primary Surgeon: Efra Yates Cake Washer: Kim Calle Cake Washer Was Necessary: Retraction and positioning during surgery Pathology: None EBL in mLs: 5 Complications: None Free Text/Narrative:: Patient is a 46-year-old female who sustained right distal tibia shaft fracture and fibular shaft fracture. Fractures were treated with open reduction and internal fixation. She had late dehiscence of the surgical wound over the tibia and was taken back to the operating room and had irrigation and debridement. She was treated with oral antibiotics for suppression of any possible deep infection until the fractures had gone on to union. Fractures of united radiographically. Patient was having pain over the plates. We discussed the risks and benefits of plate removal and patient wished to have the plates removed. Risks included infection or nerve injury particularly to the superficial peroneal nerve. Patient was medically cleared for surgery and elected to proceed. After receiving a regional block, the patient was taken to the operating room. She received intravenous sedation. She was placed in a supine position with a tourniquet around the right proximal thigh. The right lower extremities prepped and draped in usual sterile manner. The leg elevated and the tourniquet inflated. Using the previous lateral incision over the fibula shaft the skin was incised with a scalpel. Subcutaneous tissue was spread longitudinally with Metzenbaum scissors to protect any nerves. The superficial peroneal nerve was not identified but with the spreading technique the fibula was palpable and soft tissue was cleaned off the top of the plate with an elevator. 6 screws were removed and then the plate was able to remove. The bony surface was scraped to remove any soft tissue that was imposed within the plate and screws. This was then removed with a rongeur. The wound was irrigated. Because of a Vicryl allergy, the wound was closed with full-thickness horizontal mattress 3-0 nylon sutures. The superior and inferior thirds of the incision over the tibia were used and the thickened scar was excised with a scalpel. The plate was exposed and all screws identified and removed. C arm was used to identify all the screws. The plate was then elevated from the bone and removed. The new bone that it formed around the edge of the plate was removed with an elevator and rongeur. The screw holes were curetted and there was no sign of deep infection. The wound was then irrigated. Both incisions were then closed with interrupted 2-0 nylon horizontal mattress sutures. Sterile dressings were applied and patient was accompanied to the recovery room in stable condition. Medications: Ibuprofen, Tylenol, mild narcotics Venous thromboembolism prophylaxis: Not indicated for plate removal as patient will be immediately ambulatory Prophylactic antibiotics: Patient will receive 2 weeks of oral Keflex due to her prior wound dehiscence after the initial surgery Restrictions: Patient has no formal restrictions and is fully weightbearing on her right lower extremity and may resume activities as tolerated. She should not soak her right lower extremity and water until at least 2 to 3 weeks after surgery when the incisions are fully healed and sutures have been removed.
--- NOTE | 2021-03-22 15:41 | PCM.POSTAN ---
POST ANESTHESIA ASSESSMENT - MENTAL STATUS Mental Status: Alert, Oriented - VITAL SIGNS Vital Signs: Last Vital Signs Temp 35.6 C L 03/22/21 12:20 Pulse 60 03/22/21 12:20 Resp 16 03/22/21 12:20 BP 125/73 03/22/21 12:20 Pulse Ox 100 03/22/21 12:20 - RESPIRATORY Respiratory Status: Respiratory Rate WNL, Airway Patent, O2 Saturation Stable - CARDIOVASCULAR CV Status: Pulse Rate WNL, Blood Pressure Stable - GASTROINTESTINAL GI Status: No Symptoms - POST OP HYDRATION Hydration Status: Adequate & Stable
--- NOTE | 2021-03-22 15:41 | PCM48HPAN ---
Post Anesthesia Note - EVALUATION WITHIN 48HRS OF ANESTHETIC Vital Signs in Normal Range: Yes Patient Participated in Evaluation: Yes Respiratory Function Stable: Yes Airway Patent: Yes Cardiovascular Function Stable: Yes Hydration Status Stable: Yes Pain Control Satisfactory: Yes Nausea and Vomiting Control Satisfactory: Yes Mental Status Recovered: Yes Vital Signs: Last Vital Signs Temp 35.6 C L 03/22/21 12:20 Pulse 60 03/22/21 12:20 Resp 16 03/22/21 12:20 BP 125/73 03/22/21 12:20 Pulse Ox 100 03/22/21 12:20
[2021-03-22] MEDS: HYDROmorphone 2 MG/ML Syringe IVPUSH PRN ×2 (15:57→16:07)
--- NOTE | 2021-03-24 12:57 | CR ---
INDICATION: Hardware removal of the right tibia and fibula. TECHNIQUE: Fluoroscopically guided intraoperative evaluation of the right tibia and fibula. Two intraoperative spot images were obtained. COMPARISON: X-rays of the tibia and fibula February 22, 2021. FINDINGS: Since the prior study the plate and screw fixation device bridging the distal right tibia and distal right fibula have both been removed. Adequate alignment status post hardware removal. 2.8 seconds fluoroscopy time utilized. IMPRESSION: 2.8 seconds fluoroscopy time utilized intraoperatively for hardware removal involving the distal right tibia and fibula. Dictated by Cruzito Samaniego MD @ 03/24/2021 12:55:[address] Cruzito Samaniego @ Mar 24 2021 12:55PM
== END 2021-03-22 17:28 | disposition home or self-care (01) ==
LOC: MW.SDS 12:02
PROVIDERS: ATTEND Orthopaedic Surgery
DX: T84.84XA Pain due to internal orthopedic prosthetic devices, implants and grafts, initial encounter (principal); T81.41XA Infection following a procedure, superficial incisional surgical site, initial encounter; G43.109 Migraine with aura, not intractable, without status migrainosus; H81.10 Benign paroxysmal vertigo, unspecified ear; G89.18 Other acute postprocedural pain; I10 Essential (primary) hypertension; Z79.899 Other long term (current) drug therapy; Z88.8 Allergy status to other drugs, medicaments and biological substances; Z98.890 Other specified postprocedural states; Z87.81 Personal history of (healed) traumatic fracture
CPT/HCPCS: 20680; 81025; J0131; J0171; J1100; J1170; J1885; J2405; J2704; J2795; J3490; 64450